=== PATIENT | male | born 1955 | race Caucasian/White ===

== ENCOUNTER 2017-01-07 20:15 | Inpatient (IN) | payer SELFPAY ==
[~2017-01-07] VITALS: Ht 185.4 cm; Wt 92.5 kg
[~2017-01-07 20:15] MED LIST: ACET325T11 PO; ASPI325T PO; ENOX40P SQ; LORTA5 PO; METO25 PO; Z.0.COMMODE-3:1; Z.0.WALKERFRONT
[2017-01-07] MEDS ORDERED: SODIUM CHLOR 0.9% 1000 ML INJ 1,000 ML IV SCH (20:59)
[2017-01-07] MEDS ORDERED: ONDANSETRON HCL 4 MG/2 ML VIAL IVP ONE (21:00)
[2017-01-07] MEDS ORDERED: SODIUM CHLORIDE 0.9% FLUSH 10 ML FLUSH IVF PRN (21:00)
[2017-01-07] MEDS ORDERED: PANTOPRAZOLE SODIUM 40 MG VIAL IVP ONE (21:00)
--- NOTE | 2017-01-07 21:04 | PD ---
HPI Chief Complaint: hematemesis, abdominal pain Time Seen by Provider: 20:52 Travel History International Travel<30 days: No Contact w/Intl Traveler<30days: No Traveled to known affect area: No History of Present Illness HPI 61-year-old male with history of alcoholism, quit drinking for 10 years, relapsed 7 days ago drinking about a half a quart of liquor daily, here for evaluation of hematemesis and epigastric abdominal pain. Patient reports history of hematemesis in 1994 and was told that he had esophageal irritation, no varices. Epigastric abdominal pain described as burning and radiates up into his chest. He reports that his emesis show bright red blood as well as dark/[id number] emesis. He also reports seeing tarry/black stools. No aspirin or ibuprofen use. No antiplatelet or anticoagulant use. No history of abdominal surgeries. PFSH Past Medical History Cancer: No Cardiovascular Problems: No Diabetes: No Endocrine: No Genitourinary: No Hepatitis: No Hiatal Hernia: No Immune Disorder: No Musculoskeletal: Yes (INJURY WITH ARTHRITIS, WITH LOWER BACK PAIN,SWOLLEN KNEES ) Neurologic: Yes (NUMBNESS TO L LEG AND FOOT) Psychiatric: Yes (PANIC ATTACKS IN THE PAST) Reproductive: No Respiratory: No Thyroid Disease: No Past Surgical History AICD: No Joint Replacement: No Pacemaker: No Social History Alcohol Use: Yes Tobacco Use: No Substance Use: No Allergies-Medications (Allergen,Severity, Reaction): Coded Allergies: No Known Allergies (Unverified , 01/07/17) Reported Meds & Prescriptions Reported Meds & Active Scripts Active No Active Prescriptions or Reported Medications Review of Systems Except as stated in HPI: all other systems reviewed are Neg Physical Exam Narrative GENERAL: Well-developed, well-nourished, awake, alert, no apparent distress. SKIN: Focused skin assessment warm/dry. HEAD: Atraumatic. Normocephalic. EYES: Pupils equal and round. No scleral icterus. No injection or drainage. ENT: Mucous membranes pink and moist. NECK: Trachea midline. No JVD. CARDIOVASCULAR: Regular rate and rhythm. No murmur appreciated. RESPIRATORY: No accessory muscle use. Clear to auscultation. Breath sounds equal bilaterally. GASTROINTESTINAL: Abdomen soft, nondistended. Mild epigastric tenderness without peritoneal signs. Normal bowel sounds. RECTUM: No masses, no fissures, no hemorrhoids, heme-negative brown stool. MUSCULOSKELETAL: No obvious deformities. No clubbing. No cyanosis. No edema. NEUROLOGICAL: Awake and alert. No obvious cranial nerve deficits. Motor grossly within normal limits. Normal speech. PSYCHIATRIC: Appropriate mood and affect; insight and judgment normal. Data Data Last Documented VS Vital Signs Date Time Temp Pulse Resp B/P (MAP) Pulse Ox O2 Delivery O2 Flow Rate FiO2 01/08/17 00:30 98.2 116 20 102/57 (72) 99 Room Air Orders Orders Complete Blood Count With Diff (01/07/17 20:59) Comprehensive Metabolic Panel (01/07/17 20:59) Lipase (01/07/17 20:59) Prothrombin Time / Inr (Pt) (01/07/17 20:59) Act Partial Throm Time (Ptt) (01/07/17 20:59) Alcohol (Ethanol) (01/07/17 20:59) Type And Screen (01/07/17 20:59) Ecg Monitoring (01/07/17 20:59) Iv Access Insert/Monitor (01/07/17 20:59) Oximetry (01/07/17 20:59) Ondansetron Inj (Zofran Inj) (01/07/17 21:00) Pantoprazole Inj (Protonix Inj) (01/07/17 21:00) Sodium Chlor 0.9% 1000 Ml Inj (Ns 1000 M (01/07/17 20:59) Sodium Chloride 0.9% Flush (Ns Flush) (01/07/17 21:00) Electrocardiogram (01/07/17 20:59) Ckmb (Isoenzyme) Profile (01/07/17 20:59) Troponin I (01/07/17 20:59) Lactic Acid (01/07/17 21:14) Urinalysis - C+S If Indicated (01/07/17 21:38) Sodium Chlor 0.9% 1000 Ml Inj (Ns 1000 M (01/07/17 22:00) Chest, Single Ap (01/07/17 22:01) Ct Abd/Pel W Iv Contrast(Rout) (01/07/17 22:01) CKMB (01/07/17 21:28) CKMB% (01/07/17 21:28) Ct Pulmonary Angiogram (01/07/17 22:53) Iohexol 350 Inj (Omnipaque 350 Inj) (01/07/17 23:14) Sodium Chlor 0.9% 1000 Ml Inj (Ns 1000 M (01/07/17 23:45) Ct Brain W/O Iv Contrast(Rout) (01/07/17 ) Al-Mag Hy-Si 40-40-4 Mg/Ml Liq (Mag-Al P (01/08/17 00:15) Lidocaine 2% Viscous (Xylocaine 2% Visco (01/08/17 00:15) Potassium Chlor 20 Meq Premix (Kcl 20 Me (01/08/17 00:15) Aspirin Chew (Aspirin Chew) (01/08/17 00:15) Heparin-D5w 25,000 U/250 Ml (Heparin-D5w (01/08/17 00:30) Lactic Acid (01/08/17 00:41) Admit Order (Ed Use Only) (01/08/17 00:51) Labs Laboratory Tests Test 01/07/17 21:28 01/07/17 21:40 01/07/17 21:44 01/08/17 00:40 White Blood Count 9.9 TH/MM3 Red Blood Count 5.24 MIL/MM3 Hemoglobin 14.0 GM/DL Hematocrit 42.4 % Mean Corpuscular Volume 80.8 FL Mean Corpuscular Hemoglobin 26.8 PG Mean Corpuscular Hemoglobin Concent 33.1 % Red Cell Distribution Width 17.8 % Platelet Count 153 TH/MM3 Mean Platelet Volume 8.1 FL Neutrophils (%) (Auto) 74.9 % Lymphocytes (%) (Auto) 16.2 % Monocytes (%) (Auto) 7.0 % Eosinophils (%) (Auto) 0.2 % Basophils (%) (Auto) 1.7 % Neutrophils # (Auto) 7.4 TH/MM3 Lymphocytes # (Auto) 1.6 TH/MM3 Monocytes # (Auto) 0.7 TH/MM3 Eosinophils # (Auto) 0.0 TH/MM3 Basophils # (Auto) 0.2 TH/MM3 CBC Comment DIFF FINAL Differential Comment Prothrombin Time 10.9 SEC Prothromb Time International Ratio 1.0 RATIO Activated Partial Thromboplast Time 25.9 SEC Blood Urea Nitrogen 5 MG/DL Creatinine 1.10 MG/DL Random Glucose 156 MG/DL Total Protein 6.5 GM/DL Albumin 3.1 GM/DL Calcium Level 7.8 MG/DL Alkaline Phosphatase 75 U/L Aspartate Amino Transf (AST/SGOT) 79 U/L Alanine Aminotransferase (ALT/SGPT) 35 U/L Total Bilirubin 1.7 MG/DL Sodium Level 126 MEQ/L Potassium Level 2.4 MEQ/L Chloride Level 89 MEQ/L Carbon Dioxide Level 25.3 MEQ/L Anion Gap 12 MEQ/L Estimat Glomerular Filtration Rate 68 ML/MIN Total Creatine Kinase 1129 U/L Creatine Kinase MB 9.6 NG/ML Creatine Kinase MB % 0.9 % Troponin I 0.23 NG/ML Lipase 492 U/L Ethyl Alcohol Level LESS THAN 3 MG/DL Lactic Acid Level 2.5 mmol/L 1.5 mmol/L Urine Color MJ Urine Turbidity SLIGHT Urine pH 6.5 Urine Specific Cable 1.010 Urine Protein 30 mg/dL Urine Glucose (UA) NEG mg/dL Urine Ketones TRACE mg/dL Urine Occult Blood TRACE Urine Nitrite NEG Urine Bilirubin NEG Urine Leukocyte Esterase NEG Urine RBC 0-3 /hpf Urine WBC 0-2 /hpf Urine Squamous Epithelial Cells 0-5 /hpf Urine Hyaline Casts 6-9 /lpf Urine Mucus MOD /lpf Microscopic Urinalysis Comment CULT NOT INDICATED MDM Medical Decision Making Medical Screen Exam Complete: Yes Emergency Medical Condition: Yes Medical Record Reviewed: Yes Differential Diagnosis Gastritis, peptic ulcer disease, pancreatitis, esophageal varices, upper GI bleed, ACS, Boerhaave syndrome unlikely, Ayla-Dobbins tears. Narrative Course Initial vital signs show heart rate 122, blood pressure 93/60, pulse ox 100% on room air, oral temp of 99.1F. CBC shows WBC 9.9, hemoglobin 14, hematocrit 42.4, platelets 153. CMP is remarkable for sodium 126, potassium 2.4, chloride 89, AST 79, ALT 35. Lipase is 492. Lactic acid is 2.5. Total CK is 1129. CK-MB is 9.6. He can be percent is 0.9. Troponin is 0.23. Alcohol level is negative. Chest x-ray: No evidence of acute cardiopulmonary disease. Patient's EKG shows a left bundle branch block pattern, however this is similar to prior EKG. He has Q waves in anterior and inferior leads. When asked about cardiac disease, the patient reports strong family history of cardiac disease, however no known personal cardiac disease. He denies history of DVT or PE. CT abdomen pelvis is still pending. CT pulmonary angiogram also ordered to rule out PE. CT pulmonary angiogram: CONCLUSION: Negative for pulmonary embolus. Moderate to severe coronary calcifications. Minimal dependent atelectasis in the lungs. CT abdomen pelvis: CONCLUSION: 1. No acute findings within the abdomen. Diffuse fatty liver. Moderate degenerative change of the spine. Previous right hip replacement. Case discussed with on-call hide dropper Dr. Delong. At this point the plan is to start the patient on heparin and admit him to the [facility] at the [facility]. Nitroglycerin will be held at this time given hypotension. Patient made aware of all findings. He tells me that a few days ago he fell and hit the left side of his head. CT head will be ordered to rule out intracranial trauma prior to starting heparin. Patient also is still complaining of epigastric burning sensation that radiates up into his chest. He denies chest pressure. I will try a GI cocktail for these symptoms. CT head: Normal exam for patient of this age. Patient was given a liter of normal saline IV and remains tachycardic. He will be given another liter of normal saline. He will be started on heparin for his NSTEMI. Although the patient reports emesis with blood and coffee-ground emesis, his hemoglobin is 14 and his stool is heme negative and brown. I believe it is safe for him to be started on heparin at this time with serial CBCs. Potassium will be replaced parenterally. 12:45 AM: Case discussed with on-call cone runner Dr. Doan. The patient will be admitted to her service. At this time we will hold on any anticoagulation as there is a possibility that the patient may have esophageal varices and this is an early GI bleed. He is also hyponatremic and appears to be dehydrated which could cause his CBC to be hemoconcentrated. Plan at this time is to try and his CBC as well as his troponins and to make a decision as far as anticoagulation depending on what repeat labs reveal. Critical Care Narrative Aggregate critical care time was 60 minutes. Time to perform other separately billable procedures was not included in the critical care time. My time did not include minutes spent treating any other patients simultaneously or on activities that did not directly contribute to the patient's treatment. The services I provided to this patient were to treat and/or prevent clinically significant deterioration that could result in: , permanent disability, worsening clinical condition, hemorrhagic shock , cardiogenic shock I provided critical care services requiring my management, as noted below: Chart data review, documentation time, medication orders and management, vital sign assessments/reviewing monitor data, ordering and reviewing lab tests, ordering and interpreting/reviewing x-rays and diagnostic studies, care of the patient and discussion of the patient with the admitting physicians. Diagnosis Primary Impression: Non-STEMI (non-ST elevated myocardial infarction) Additional Impressions: Hyponatremia Hypokalemia Hypotension Qualified Codes: I95.9 - Hypotension, unspecified Admitting Information Admitting Physician Requests: Admit Scripts No Active Prescriptions or Reported Meds Jonathan Bahena MD Jan 07, 2017 21:04
[2017-01-07 21:38] VITALS: BP 93/60; PULSE 122; RESP 12; TEMP 99.1; O2SAT 100
[2017-01-07 21:54] LABS: AUTOMATED NEUTROPHIL # 7.4 TH/MM3 (1.8-7.7); BASOPHIL # 0.2 TH/MM3 (0-0.2); BASOPHIL % 1.7 % (0.0-2.0); EOSINOPHIL % 0.2 % (0.0-4.0); HEMATOCRIT 42.4 % (39.0-51.0); HEMO FLAGS DIFF FINAL; LYMPH % 16.2 % (9.0-44.0); LYMPHOCYTE # 1.6 TH/MM3 (1.0-4.8); MEAN CELL VOLUME 80.8 FL (80.0-100.0); MEAN CORPUSCULAR HEMOGLOBIN 26.8 PG (27.0-34.0); MEAN CORPUSCULAR HGB CONC 33.1 % (32.0-36.0); NEUT % 74.9 % (16.0-70.0); PLATELET COUNT 153 TH/MM3 (150-450); RED BLOOD COUNT 5.24 MIL/MM3 (4.50-5.90); RED CELL DISTRIBUTION WIDTH 17.8 % (11.6-17.2); WHITE BLOOD COUNT 9.9 TH/MM3 (4.0-11.0)
[2017-01-07 21:54] LABS: BLOOD, URINE TRACE (NEG); GLUCOSE,URINE NEG (NEG); KETONE, URINE TRACE mg/dL (NEG); NITRITE,URINE NEG (NEG); PH, URINE 6.5 (5.0-8.5)
[2017-01-07 21:55] VITALS: RESP 18; RESP 8; O2SAT 96
[2017-01-07] MEDS ORDERED: SODIUM CHLOR 0.9% 1000 ML INJ 1,000 ML IV ONE ×2 (22:00→23:45)
[2017-01-07 22:23] LABS: APTT (PATIENT) 25.9 SEC (24.3-30.1); PROTHROMBIN TIME - PATIENT 10.9 SEC (9.8-11.6)
[2017-01-07 22:40] LABS: ALCOHOL LESS THAN 3 MG/DL (0-5); ALKALINE PHOSPHATASE 75 U/L (45-117); ALT (GPT) 35 U/L (12-78); ANION GAP 12 MEQ/L (5-15); AST (GOT) 79 U/L (15-37); BICARBONATE 25.3 MEQ/L (21.0-32.0); BLOOD UREA NITROGEN 5 MG/DL (7-18); CHLORIDE 89 MEQ/L (98-107); CREATINE KINASE 1129 U/L (39-308); GLOMERULAR FILTRATION RATE 68 ML/MIN (>89); SODIUM (NA) 126 MEQ/L (136-145); TOTAL BILIRUBIN ADULT 1.7 MG/DL (0.2-1.0)
[2017-01-07 22:41] LABS: POTASSIUM 2.4 MEQ/L (3.5-5.1)
--- NOTE | 2017-01-07 22:43 | RADRPT ---
EXAM DATE/TIME: 01/07/2017 22:20 [facility] COMPARISON: No previous studies available for comparison. INDICATIONS : Chest pain. MEDICAL HISTORY : None. SURGICAL HISTORY : None. ENCOUNTER: Initial ACUITY: 1 day PAIN SCORE: 5/10 LOCATION: Bilateral chest FINDINGS: A single view of the chest demonstrates the lungs to be symmetrically aerated without evidence of mas s, infiltrate or effusion. The cardiomediastinal contours are unremarkable. Osseous structures are intact. CONCLUSION: No evidence of acute cardiopulmonary disease. Rajeev Loera MD on January 07, 2017 at 22:41 Board Certified Radiologist. This report was verified electronically.
[2017-01-07 22:45] LABS: URINE COLOR AMBER (YELLW/STRAW)
[2017-01-07 22:47] LABS: MUCUS URINE MOD /lpf (OCC)
[2017-01-07 22:48] LABS: WBC, URINE 0-2 /hpf (0-5)
[2017-01-07 22:49] LABS: COMMENT (UR) CULT NOT INDICATED; CULTURE IF INDICATED CULT NOT INDICATED; RBC, URINE 0-3 /hpf (0-3); SQUAMOUS EPITHELIAL CELL URINE 0-5 /hpf (0-5)
[2017-01-07 22:55] LABS: CKMB 9.6 NG/ML (0.5-3.6)
[2017-01-07] MEDS ORDERED: IOHEXOL 350 MG/ML 10 ML VIAL (for RAD DIAG) IVCONTRAST ONE (23:14)
--- NOTE | 2017-01-07 23:25 | RADRPT ---
EXAM DATE/TIME: 01/07/2017 23:00 [facility] COMPARISON: No previous studies available for comparison. INDICATIONS : Tachycardia; rule out pulmonary embolus. IV CONTRAST: 94 cc Omnipaque 350 (iohexol) IV ; Cumulative dose for multiple exams. RADIATION DOSE: 22.71 CTDIvol (mGy) MEDICAL HISTORY : None SURGICAL HISTORY : None. ENCOUNTER: Initial ACUITY: 1 day PAIN SCALE: 7/10 LOCATION: chest TECHNIQUE: Volumetric scanning of the chest was performed using a pulmonary embolism protocol MIP images were re constructed. Using automated exposure control and adjustment of the mA and/or kV according to patien t size, radiation dose was kept as low as reasonably achievable to obtain optimal diagnostic quality images. DICOM format image data is available electronically for review and comparison. Follow-up recommendations for detected pulmonary nodules are based at a minimum on nodule size and pa tient risk factors according to Fleischner Society Guidelines. FINDINGS: PULMONARY ARTERIES: No filling defects are seen in the pulmonary arteries through the segmental level. LUNGS: There is no consolidation or pneumothorax . No concerning pulmonary nodule is visualized. PLEURAE: There is no pleural thickening or pleural effusion. MEDIASTINUM: There is good visualization of the great vessels of the middle mediastinum. No evidence of mediastin al or hilar adenopathy/mass. MUSCULOSKELETAL: Within normal limits for patient age. MISCELLANEOUS: The visualized upper abdominal organs demonstrate no acute abnormality. CONCLUSION: Negative for pulmonary embolus. Moderate to severe coronary calcifications. Minimal dependent atelect asis in the lungs. Les Buckley MD on January 07, 2017 at 23:18 Board Certified Radiologist. This report was verified electronically.
--- NOTE | 2017-01-07 23:42 | RADRPT ---
EXAM DATE/TIME: 01/07/2017 23:00 [facility] COMPARISON: No previous studies available for comparison. INDICATIONS : Upper abdominal pain and vomiting blood. IV CONTRAST: 94 cc Omnipaque 350 (iohexol) IV ; Cumulative dose for multiple exams. ORAL CONTRAST: No oral contrast ingested. RADIATION DOSE: 21.32 CTDIvol (mGy) MEDICAL HISTORY : None SURGICAL HISTORY : Right hip replacement ENCOUNTER: Initial ACUITY: 1 day PAIN SCALE: 7/10 LOCATION: abdomen TECHNIQUE: Volumetric scanning of the abdomen and pelvis was performed. Using automated exposure control and ad justment of the mA and/or kV according to patient size, radiation dose was kept as low as reasonably achievable to obtain optimal diagnostic quality images. DICOM format image data is available electro nically for review and comparison. FINDINGS: Minimal dependent atelectasis in the lungs. Moderate coronary calcifications. No significant pleural or pericardial effusion. Diffuse fatty liver. Spleen, adrenals, kidneys and pancreas unremarkable. No free air or free fluid. No bowel obstruction. No acute bony abnormalities. Previous right hip repl acement. CONCLUSION: 1. No acute findings within the abdomen. Diffuse fatty liver. Moderate degenerative change of the spi ne. Previous right hip replacement. Les Buckley MD on January 07, 2017 at 23:36 Board Certified Radiologist. This report was verified electronically.
[2017-01-08] VITALS (14 sets, daily range): BP systolic 92–135; BP diastolic 57–96; PULSE 74–116; RESP 18–24; TEMP 97.2–99.2; O2SAT 96–100
--- NOTE | 2017-01-08 00:09 | RADRPT ---
EXAM DATE/TIME: 01/07/2017 23:54 [facility] COMPARISON: No previous studies available for comparison. INDICATIONS : Patient states he fell 3 days ago. RADIATION DOSE: 63.77 CTDIvol (mGy) MEDICAL HISTORY : Cardiovascular disease. SURGICAL HISTORY : Right hip replacement ENCOUNTER: Initial ACUITY: 3 days PAIN SCALE: 0/10 LOCATION: cranial TECHNIQUE: Multiple contiguous axial images were obtained of the head. Using automated exposure control and adj ustment of the mA and/or kV according to patient size, radiation dose was kept as low as reasonably a chievable to obtain optimal diagnostic quality images. DICOM format image data is available electro nically for review and comparison. FINDINGS: CEREBRUM: The ventricles are normal for age. No evidence of midline shift, mass lesion, hemorrhage or acute in farction. No extra-axial fluid collections are seen. POSTERIOR FOSSA: The cerebellum and brainstem are intact. The 4th ventricle is midline. The cerebellopontine angle i s unremarkable. EXTRACRANIAL: The visualized portion of the orbits is intact. SKULL: The calvaria is intact. No evidence of skull fracture. CONCLUSION: Normal examination for a patient of this age. Les Buckley MD on January 08, 2017 at 0:06 Board Certified Radiologist. This report was verified electronically.
[2017-01-08] MEDS ORDERED: ASPIRIN 81 MG CHEW TAB PO ONE (00:15)
[2017-01-08] MEDS ORDERED: LIDOCAINE VISCOUS 2% SOLN 15 ML UDC PO ONE (00:15)
[2017-01-08] MEDS ORDERED: ALUMINUM/MAGNESIUM/SIMETH 30 ML CUP PO ONE ×2 (00:15→06:00)
[2017-01-08] MEDS ORDERED: HEPARIN-D5W 25,000 U/250 ML 250 ML IV PRN (00:30)
[2017-01-08] MEDS: POTASSIUM CHLOR 20 MEQ PREMIX 100 ML IV SCH ×4 (00:50→05:54)
[2017-01-08] MEDS ORDERED: SODIUM CHLOR 0.9% 1000 ML INJ 1,000 ML IV ONE (01:00)
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
[2017-01-08] MEDS: SODIUM CHLOR 0.9% 1000 ML INJ 1,000 ML IV SCH ×5 (05:40→21:33)
[2017-01-08] MEDS ORDERED: CHLORHEXIDINE GLUCONATE 2 % 1 PACK (2 CLOTHS) TOP PRN (05:45)
[2017-01-08] MEDS ORDERED: POTASSIUM PHOSPHATE INJ 30 MMOL in SODIUM CHLOR 0.9% 250 ML INJ 250 ML IV PRN ×2 (05:45→06:00)
[2017-01-08] MEDS ORDERED: POTASSIUM CHLOR 20 MEQ PREMIX 100 ML IV PRN ×4 (05:45→06:00)
[2017-01-08] MEDS ORDERED: MISCELLANEOUS NURSING INFORMATION XX SCH (05:45)
[2017-01-08] MEDS ORDERED: MAGNESIUM SULFATE INJ 2 GM in SODIUM CHLORIDE 0.9% INJ 96 ML IV PRN ×2 (05:45→06:00)
[2017-01-08] MEDS ORDERED: MAGNESIUM SULFATE INJ 4 GM in SODIUM CHLORIDE 0.9% INJ 92 ML IV PRN ×2 (05:45→06:00)
[2017-01-08] MEDS ORDERED: BISACODYL 10 MG SUPP RECTAL PRN (05:45)
[2017-01-08] MEDS ORDERED: SENNOSIDES 8.6 MG TAB PO PRN (05:45)
[2017-01-08] MEDS ORDERED: LACTULOSE SYRUP 20 GM/30 ML CUP PO PRN (05:45)
[2017-01-08] MEDS ORDERED: ONDANSETRON HCL 4 MG/2 ML VIAL IV PUSH PRN (05:45)
[2017-01-08] MEDS ORDERED: SODIUM CHLORIDE 0.9% FLUSH 10 ML FLUSH IV FLUSH PRN ×2 (05:45→06:00)
[2017-01-08] MEDS ORDERED: POTASSIUM CHLORIDE 25 MEQ EFFERVESCENT TAB PO PRN ×2 (05:45→06:00)
[2017-01-08] MEDS ORDERED: SODIUM PHOSPHATE INJ 30 MMOL in SODIUM CHLOR 0.9% 250 ML INJ 240 ML IV PRN ×2 (05:45→06:00)
[2017-01-08] MEDS ORDERED: MAGNESIUM HYDROXIDE SUSP 30 ML CUP PO PRN (05:45)
[2017-01-08] MEDS ORDERED: POTASSIUM CHLOR 40 MEQ PREMIX 100 ML IV PRN ×4 (05:45→06:00)
[2017-01-08] MEDS ORDERED: POTASSIUM PHOSPHATE MONOBASIC 500 MG TAB PO/TUBE PRN ×2 (05:45→06:00)
[2017-01-08] MEDS ORDERED: POTASSIUM PHOSPHATE MONOBASIC 500 MG TAB PO PRN ×2 (05:45→06:00)
[2017-01-08] MEDS ORDERED: MAGNESIUM OXIDE 400 MG TAB PO PRN ×2 (05:45→06:00)
[2017-01-08] MEDS ORDERED: MORPHINE SULFATE 4 MG/ML INJ IV PUSH PRN (05:45)
[2017-01-08] MEDS: PANTOPRAZOLE SODIUM 40 MG VIAL IV PUSH SCH ×2 (05:56→17:17)
[2017-01-08] MEDS ORDERED: FLUMAZENIL 0.5 MG/5 ML VIAL IV PUSH PRN (06:00)
[2017-01-08] MEDS ORDERED: LORazepam 2 MG TAB PO PRN (06:00)
[2017-01-08] MEDS ORDERED: LORazepam 2 MG/ML VIAL IV PUSH PRN ×4 (06:00)
[2017-01-08 06:23] LABS: HEMATOCRIT 37.7 % (39.0-51.0); REVIEW FLAG FINAL
[2017-01-08] MEDS: OCTREOTIDE INJ 500 MCG in SODIUM CHLORID 0.9% 500 ML INJ 499.5 ML IV SCH ×2 (06:27→15:25)
[2017-01-08 06:31] LABS: MAGNESIUM 1.5 MG/DL (1.5-2.5)
[2017-01-08] MEDS: MULTIVITAMIN INJ 10 ML, FOLIC ACID INJ 1 MG in SODIUM CHLORID 0.9% 500 ML INJ 500 ML IV SCH (06:58)
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
[2017-01-08] MEDS: DOCUSATE SODIUM 50 MG/SENNA 8.6 MG TAB PO SCH ×2 (08:47→21:00)
[2017-01-08] MEDS: SODIUM CHLORIDE 0.9% FLUSH 10 ML FLUSH IV FLUSH SCH ×2 (08:47→21:33)
[2017-01-08] MEDS ORDERED: SODIUM CHLORIDE 0.9% FLUSH 10 ML FLUSH IV FLUSH SCH (09:00)
[2017-01-08] MEDS ORDERED: MIDAZOLAM HCL 2 MG/2 ML VIAL ONE (10:48)
[2017-01-08] MEDS ORDERED: PROPOFOL 200 MG/20 ML AMP IV PUSH ONE (11:04)
[2017-01-08] MEDS ORDERED: DO NOT ADM ANY ANTICOAGULANT DRUGS PRN (11:18)
--- NOTE | 2017-01-08 11:35 | GIPROC ---
[facility] [address] [facility]. [facility], [id number] EGD PROCEDURE REPORT EXAM DATE: 01/08/2017 PATIENT NAME: Sanya Cantu MR #: [id number] BIRTHDATE: 1955 ATTENDING: Inna Monsivais MD ORDER #: [id number] EXCHANGE CONSULTANT: Latia Martins and Basilio Kelley STATUS: inpatient INDICATIONS: The patient is a 61 yr old male here for an EGD due to reflux , anemia , melena PROCEDURE PERFORMED: EGD w/ biopsy MEDICATIONS: None and Per Anesthesia. TOPICAL ANESTHETIC: none CONSENT: The patient understands the risks and benefits of the procedure and understands that these risks include, but are not limited to: sedation, allergic reaction, infection, perforation and/or bleeding. Alternative means of evaluation and treatment include, among others: physical exam, x-rays, and/or surgical intervention. The patient elects to proceed with this endoscopic procedure. medical equipment was checked for proper function. Hand hygiene and appropriate measures for infection prevention was taken. After the risks, benefits and alternatives of the procedure were thoroughly explained, Informed consent was verified, confirmed and timeout was successfully executed by the treatment team. The patient was anesthetized with topical anesthesia and the Pentax [id number] endoscope was introduced through the mouth and advanced to the second portion of the duodenum. Retroflexed views revealed a hiatal hernia The gastroscope was then slowly withdrawn and removed. Gastritis antrum-biopsy duodenitis second potion-biopsy esophagitis distal esophagus -biopsy. ADVERSE EVENTS: There were no complications. IMPRESSIONS: 1. Gastritis antrum-biopsy duodenitis second potion-biopsy esophagitis distal esophagus -biopsy 2. Retroflexed views revealed a hiatal hernia RECOMMENDATIONS: 1. Await biopsy results. Biopsy results will not be ready for 7-10 days. If you don't hear from us in two weeks, call our office for biopsy results. 2. Anti-reflux regimen PATIENT CONDITION: stable DISPOSITION: Inpatient REPEAT EXAM: EGD pending biopsy results Inna Monsivais MD eSigned: Inna Monsivais MD 01/08/2017 11:35 AM cc:
[2017-01-08] MEDS ORDERED: POTASSIUM PHOSPHATE INJ 30 MMOL in SODIUM CHLOR 0.9% 250 ML INJ 250 ML IV ONE (13:00)
--- NOTE | 2017-01-08 13:38 | PD.CONS ---
HPI Service Cardiology physicians Consult Requested By Dr britton Reason for Consult elevated troponin Primary Care Physician No Primary Care Physician History of Present Illness The patient is a 61 year old male with a cardiac history of non sustained supraventricular tachycardia who presented to the hospital for sudden onset of vomiting dried blood and dark-tarry stool. He had recently relapsed and started drinking large amount of alcohol. Work up from a cardiac standpoint revealed elevated troponin and moderate to severe coronary calcification on CT pulmonary angiogram. EGD completed this morning negative for esophageal varices. Today, he denies chest pain or SOB. EKG reveals IVCD which is stable compared to 2015 admission. (Wendy Arreola) Review of Systems Consitutional: DENIES: Fatigue, Fever, Chills, Weight gain, Weight loss Eyes: DENIES: Amaurosis Fugax, Change in vision HEENT: DENIES: Lightheadedness, Change in hearing Respiratory: DENIES: See HPI, Cough, Snoring, Shortness of breath, Wheezing, Sputum production Cardiovascular: DENIES: See HPI, Chest pain, Palpitations, Syncope, Tachycardia Gastrointestinal: COMPLAINS OF: Vomiting, Bloody stools, DENIES: Nausea, Change in bowel habits, Reflux, Melena Genitourinary: DENIES: Urinary incontinence, Difficulty voiding Integumentary: DENIES: Rash Neurologic: DENIES: Tingling or numbness, Memory problems, Poor Balance, Stroke symptoms Musculoskeletal: DENIES: Joint pain, Muscle pain, Limited range of motion, Back pain Psychiatric: DENIES: Anxiety, Depression, Sleep disturbances Hematologic: DENIES: Bruising tendencies, Bleeding tendencies Endocrine: DENIES: Weight gain, Weight loss, Thyroid disease (Wendy Arreola ) Past Family Social History Allergies: Coded Allergies: No Known Allergies (Unverified , 01/07/17) Past Medical History ETOH dependence non sustained supraventricular tachycardia. Esophagitis and GI bleed Past Surgical History hip surgery 09/2015 Reported Medications Reported Meds & Active Scripts Active No Active Prescriptions or Reported Medications Active Ordered Medications Current Medications Medications (Trade) Dose Ordered Sig/Eduardo Route Start Time Stop Time Status Last Admin (Protonix Inj) 40 mg Q12H IV PUSH 01/08/17 06:00 01/08/17 05:56 Octreotide Acetate 500 mcg/ Sodium Chloride 500 ml @ 50 mls/hr Q10H IV 01/08/17 05:39 01/08/17 06:27 Sodium Chloride 1,000 ml @ 110 mls/hr Q9H6M IV 01/08/17 05:40 01/08/17 05:40 (Morphine Inj) 2 mg Q2H PRN IV PUSH 01/08/17 05:45 01/08/17 12:00 (Zofran Inj) 4 mg Q6H PRN IV PUSH 01/08/17 05:45 01/08/17 12:00 Miscellaneous Information 1 Q361D XX 01/08/17 05:45 01/08/17 05:45 (Chlorhexidine 2% Cloth) 3 pack Taper DAILY@04 TOP 01/09/17 04:00 01/05/18 03:59 (Chlorhexidine 2% Cloth) 3 pack UNSCH PRN TOP 01/08/17 05:45 (Alma-Colace) 1 tab BID PO 01/08/17 09:00 (Milk Of Magnesia Liq) 30 ml Q12H PRN PO 01/08/17 05:45 (Senokot) 17.2 mg Q12H PRN PO 01/08/17 05:45 (Dulcolax Supp) 10 mg DAILY PRN RECTAL 01/08/17 05:45 (Lactulose Liq) 30 ml DAILY PRN PO 01/08/17 05:45 Potassium Chloride 100 ml @ 50 mls/hr Q2H PRN IV 01/08/17 06:00 Potassium Chloride 100 ml @ 50 mls/hr Q2H PRN IV 01/08/17 06:00 (K-Lyte Cl Eff) 50 meq UNSCH PRN PO 01/08/17 06:00 Potassium Chloride 100 ml @ 25 mls/hr UNSCH PRN IV 01/08/17 06:00 Potassium Chloride 100 ml @ 50 mls/hr Q2H PRN IV 01/08/17 06:00 Magnesium Sulfate 4 gm/Sodium Chloride 100 ml @ 50 mls/hr UNSCH PRN IV 01/08/17 06:00 (Mag-Ox) 800 mg UNSCH PRN PO 01/08/17 06:00 Magnesium Sulfate 2 gm/Sodium Chloride 100 ml @ 50 mls/hr UNSCH PRN IV 01/08/17 06:00 (K-Phos) 2,000 mg Q4H PRN PO 01/08/17 06:00 Sodium Phosphate 30 mmol/Sodium Chloride 250 ml @ 42 mls/hr UNSCH PRN IV 01/08/17 06:00 (K-Phos) 2,000 mg UNSCH PRN PO/TUBE 01/08/17 06:00 Potassium Phosphate 30 mmol/ Sodium Chloride 260 ml @ 42 mls/hr UNSCH PRN IV 01/08/17 06:00 (NS Flush) 2 ml UNSCH PRN IV FLUSH 01/08/17 06:00 (NS Flush) 2 ml BID IV FLUSH 01/08/17 09:00 Multivitamins 10 ml/Folic Acid 1 mg/Sodium Chloride 510.2 ml @ 125 mls/hr Q24H IV 01/08/17 06:00 01/13/17 05:59 01/08/17 06:58 (Romazicon Inj) 0.2 mg Q1M PRN IV PUSH 01/08/17 06:00 (Ativan) 1 mg Q4H PRN PO 01/08/17 06:00 (Ativan Inj) 1 mg Q4H PRN IV PUSH 01/08/17 06:00 (Ativan) 2 mg Q2H PRN PO 01/08/17 06:00 (Ativan Inj) 2 mg Q2H PRN IV PUSH 01/08/17 06:00 (Ativan Inj) 2 mg Q1H PRN IV PUSH 01/08/17 06:00 (Ativan Inj) 2 mg Q15M PRN IV PUSH 01/08/17 06:00 Potassium Phosphate 30 mmol/ Sodium Chloride 260 ml @ 43.333 mls/ hr ONCE ONCE IV 01/08/17 13:00 01/08/17 18:59 01/08/17 12:01 Sodium Chloride 1,000 ml @ 100 mls/hr Q10H IV 01/08/17 11:15 01/08/17 12:33 Miscellaneous Information ALL NURSING DEPARTME... UNSCH PRN .XX 01/08/17 11:18 01/09/17 11:17 Social History Long standing history of ETOH dependence (Wendy Arreola) Physical Exam Vital Signs Vital Signs Date Time Temp Pulse Resp B/P (MAP) Pulse Ox O2 Delivery O2 Flow Rate FiO2 01/08/17 12:00 98.2 103 22 130/72 (91) 97 01/08/17 12:00 103 01/08/17 11:38 98.4 102 20 123/85 (98) 96 Nasal Cannula 2 01/08/17 11:30 104 20 113/76 (88) 96 Nasal Cannula 2 01/08/17 11:20 100 21 108/73 (85) 96 Nasal Cannula 2 01/08/17 11:17 98.4 107 20 105/72 (83) 96 Nasal Cannula 2 01/08/17 10:00 98 01/08/17 08:00 106 01/08/17 08:00 99.1 106 24 135/89 (104) 96 01/08/17 08:00 106 01/08/17 07:00 98 Room Air 01/08/17 04:00 Room Air 01/08/17 04:00 98.8 113 22 121/78 (92) 97 01/08/17 03:14 01/08/17 03:00 99.2 108 18 119/80 (93) 99 Room Air 01/08/17 02:30 104 18 131/62 (85) 99 Room Air 01/08/17 02:00 106 18 122/79 (93) 99 Room Air 01/08/17 01:30 106 20 106/67 (80) 100 Room Air 01/08/17 01:00 110 20 92/67 (75) 99 Room Air 01/08/17 00:30 98.2 116 20 102/57 (72) 99 Room Air 01/07/17 21:55 18 96 Room Air 01/07/17 21:38 99.1 122 12 93/60 (71) 100 Physical Exam GENERAL: middle aged male SKIN: Warm and dry. tattoos HEAD: Normocephalic. EYES: No scleral icterus. No injection or drainage. NECK: Supple, trachea midline. CARDIOVASCULAR: Regular rate and rhythm without murmurs, gallops, or rubs. RESPIRATORY: Breath sounds equal bilaterally. No accessory muscle use. GASTROINTESTINAL: Abdomen soft, non-tender, nondistended. MUSCULOSKELETAL: No cyanosis, or edema. BACK: Nontender without obvious deformity. Laboratory Laboratory Tests Test 01/07/17 21:28 01/07/17 21:40 01/07/17 21:44 01/08/17 00:40 White Blood Count 9.9 Red Blood Count 5.24 Hemoglobin 14.0 Hematocrit 42.4 Mean Corpuscular Volume 80.8 Mean Corpuscular Hemoglobin 26.8 Mean Corpuscular Hemoglobin Concent 33.1 Red Cell Distribution Width 17.8 Platelet Count 153 Mean Platelet Volume 8.1 Neutrophils (%) (Auto) 74.9 Lymphocytes (%) (Auto) 16.2 Monocytes (%) (Auto) 7.0 Eosinophils (%) (Auto) 0.2 Basophils (%) (Auto) 1.7 Neutrophils # (Auto) 7.4 Lymphocytes # (Auto) 1.6 Monocytes # (Auto) 0.7 Eosinophils # (Auto) 0.0 Basophils # (Auto) 0.2 CBC Comment DIFF FINAL Differential Comment Prothrombin Time 10.9 Prothromb Time International Ratio 1.0 Activated Partial Thromboplast Time 25.9 Blood Urea Nitrogen 5 Creatinine 1.10 Random Glucose 156 Total Protein 6.5 Albumin 3.1 Calcium Level 7.8 Alkaline Phosphatase 75 Aspartate Amino Transf (AST/SGOT) 79 Alanine Aminotransferase (ALT/SGPT) 35 Total Bilirubin 1.7 Sodium Level 126 Potassium Level 2.4 Chloride Level 89 Carbon Dioxide Level 25.3 Anion Gap 12 Estimat Glomerular Filtration Rate 68 Total Creatine Kinase 1129 Creatine Kinase MB 9.6 Creatine Kinase MB % 0.9 Troponin I 0.23 Lipase 492 Ethyl Alcohol Level LESS THAN 3 Lactic Acid Level 2.5 1.5 Urine Color MJ Urine Turbidity SLIGHT Urine pH 6.5 Urine Specific Arnot 1.010 Urine Protein 30 Urine Glucose (UA) NEG Urine Ketones TRACE Urine Occult Blood TRACE Urine Nitrite NEG Urine Bilirubin NEG Urine Leukocyte Esterase NEG Urine RBC 0-3 Urine WBC 0-2 Urine Squamous Epithelial Cells 0-5 Urine Hyaline Casts 6-9 Urine Mucus MOD Microscopic Urinalysis Comment CULT NOT INDICATED Test 01/08/17 04:20 01/08/17 05:40 Nasal Screen MRSA (PCR) MRSA NOT DETECTED Hemoglobin 12.4 Hematocrit 37.7 Phosphorus Level 1.3 Magnesium Level 1.5 Ammonia 28 Troponin I 0.17 (Wendy Arreola) Result Diagram: 01/08/17 0540 01/07/172127 Imaging Last [address] Angiography 01/07/17 8128 Signed Impressions: Service Date/Time: Saturday, January 07, 2017 23:00 - CONCLUSION: Negative for pulmonary embolus. Moderate to severe coronary calcifications. Minimal dependent atelectasis in the lungs. Les Buckley MD Chest X-Ray 01/07/172200 Signed Impressions: Service Date/Time: Saturday, January 07, 2017 22:20 - CONCLUSION: No evidence of acute cardiopulmonary disease. Rajeev Loera MD Abdomen/Pelvis CT 01/07/172200 Signed Impressions: Service Date/Time: Saturday, January 07, 2017 23:00 - CONCLUSION: 1. No acute findings within the abdomen. Diffuse fatty liver. Moderate degenerative change of the spine. Previous right hip replacement. Les Buckley MD Head CT 01/07/17 0000 Signed Impressions: Service Date/Time: Saturday, January 07, 2017 23:54 - CONCLUSION: Normal examination for a patient of this age. Les Buckley MD (Wendy Arreola) Assessment and Plan Assessment and Plan Elevated troponin with evidence of moderate to severe coronary calcification on imaging History of non sustained supraventricular tachycardia. PLAN Resume low dose beta suzanne ASA 81 mg when cleared by GI We will order lexiscan to be completed prior to discharge Patient seen and evaluated by Dr Delong who completed a face to face encounter and physical exam, and participated in evaluation and management. (Wendy Arreola) Assessment and Plan The exam, history, and the medical decision-making described in the above note were completed with the assistance of the mid-level provider. I reviewed and agree with the findings presented. I attest that I had a [id number] encounter with the patient on the same day, and personally performed and documented my assessment and findings in the medical record Has coronary calcification and borderline troponin. (Arnold Delong MD) Wendy Arreola Jan 08, 2017 13:38 Arnold Delong MD Jan 08, 2017 13:50
--- NOTE | 2017-01-08 13:46 | EKG ---
Date Performed: 01/07/2017 Time Performed: 21:10:30 PTAGE: 61 years EKG: SINUS TACHYCARDIA ANTERIOR MYOCARDIAL INFARCTION INFERIOR MYOCARDIAL INFARCTION ABNORMAL EC G PREVIOUS TRACING : 10/05/2015 12.27 Since the prior tracing, there has been development of QT p rolongation. There has been further widening of the QRS complex. The criteria for the anterior wall i nfarct of indeterminate age is new. Serial changes suggest drug effect, electrolyte imbalance, or kamini cardial disease. Clinical correlation will be important. DOCTOR: Mahi Langston Interpretating Date/Time 01/08/2017 13:44:48
[2017-01-08] MEDS: METOPROLOL TARTRATE 25 MG TAB PO SCH ×2 (14:32→21:33)
[2017-01-08 15:39] LABS: HEMATOCRIT 34.5 % (39.0-51.0); REVIEW FLAG FINAL
[2017-01-08 16:26] LABS: POTASSIUM 3.3 MEQ/L (3.5-5.1)
[2017-01-08 16:41] LABS: CKMB 4.4 NG/ML (0.5-3.6)
--- NOTE | 2017-01-08 16:53 | ECHRPT ---
Indication: SHORTNESS OF BREATH CONCLUSIONS Mildly dilated left ventricle. Wall thickness is normal. The left ventricular systolic function is severely reduced with an estimated ejection fraction in th e range of 20-25%. There is diffuse global hypokinesis without distinct regional wall motion abnormalities. Trace mitral valve regurgitation. The aortic valve is not well visualized. There is trace tricuspid valve regurgitation. Normal estimated pulmonary pressures. BP: 121 / 78 HR: 113 Rhythm: Sinus MEASUREMENTS (Male / Female) Normal Values Technical Quality:Very technically difficult study 2D ECHO LV Diastolic Diameter PLAX 5.1 cm 4.2 - 5.9 / 3.9 - 5.3 cm LV Systolic Diameter PLAX 4.6 cm IVS Diastolic Thickness 0.9 cm 0.6 - 1.0 / 0.6 - 0.9 cm LVPW Diastolic Thickness 0.9 cm 0.6 - 1.0 / 0.6 - 0.9 cm LV Relative Wall Thickness 0.3 LVOT Diameter 2.4 cm Aortic Root Diameter 3.3 cm LA Systolic Diameter LX 2.7 cm 3.0 - 4.0 / 2.7 - 3.8 cm M-MODE AV Cusp Separation MM 2.2 cm DOPPLER AV Peak Velocity 108.0 cm/s AV Peak Gradient 4.7 mmHg AV Mean Gradient 3.0 mmHg AV Velocity Time Integral 14.8 cm LVOT Peak Velocity 70.7 cm/s LVOT Peak Gradient 2.0 mmHg LVOT Velocity Time Integral 10.0 cm LVOT Cardiac Index 2250.0 cm/minm AV Area Cont Eq vti 3.1 cm AV Area Cont Eq pk 3.0 cm Mitral E Point Velocity 80.5 cm/s Mitral A Point Velocity 64.7 cm/s Mitral E to A Ratio 1.2 LV E' Lateral Velocity 10.2 cm/s Mitral E to LV E' Lateral Ratio 7.9 LV E' Septal Velocity 4.6 cm/s Mitral E to LV E' Septal Ratio 17.5 TR Peak Velocity 227.0 cm/s TR Peak Gradient 20.6 mmHg PV Peak Velocity 66.2 cm/s PV Peak Gradient 1.8 mmHg FINDINGS LEFT VENTRICLE Mildly dilated left ventricle. Wall thickness is normal. The left ventricular systolic function is severely reduced with an estimated ejection fraction in th e range of 20-25%. There is diffuse global hypokinesis without distinct regional wall motion abnormalities. RIGHT VENTRICLE Normal right ventricular size and systolic function. LEFT ATRIUM The left atrial size is upper normal. RIGHT ATRIUM The right atrial size is normal. ATRIAL SEPTUM The interatrial septum not well visualized. AORTA The aortic root and proximal ascending aorta are not well visualized. MITRAL VALVE Structurally normal mitral valve. Trace mitral valve regurgitation. AORTIC VALVE The aortic valve is not well visualized. No aortic valve stenosis. No aortic valve regurgitation. TRICUSPID VALVE Structurally normal tricuspid valve. There is trace tricuspid valve regurgitation. Normal estimated pulmonary pressures. PULMONARY VALVE No pulmonary valve regurgitation or stenosis. VESSELS The inferior vena cava is dilated. There is less than 50% respiratory change in dimension of the inferior vena cava (abnormal). PERICARDIUM No pericardial effusion. Tr Barbosa MD (Electronically Signed) Final Date:08 January 2017 16:52
[2017-01-08 23:51] LABS: HEMATOCRIT 32.2 % (39.0-51.0); REVIEW FLAG FINAL
[2017-01-09] VITALS (8 sets, daily range): BP systolic 123–149; BP diastolic 77–87; PULSE 95–114; RESP 18–20; TEMP 98–99; O2SAT 96–98
[2017-01-09] MEDS: OCTREOTIDE INJ 500 MCG in SODIUM CHLORID 0.9% 500 ML INJ 499.5 ML IV SCH ×3 (02:49→21:53)
[2017-01-09] MEDS: CHLORHEXIDINE GLUCONATE 2 % 1 PACK (2 CLOTHS) TOP SCH (04:00)
[2017-01-09 04:34] LABS: AUTOMATED NEUTROPHIL # 3.8 TH/MM3 (1.8-7.7); BASOPHIL % 0.4 % (0.0-2.0); EOSINOPHIL # 0.1 TH/MM3 (0-0.4); EOSINOPHIL % 1.2 % (0.0-4.0); HEMATOCRIT 31.3 % (39.0-51.0); LYMPH % 28.4 % (9.0-44.0); LYMPHOCYTE # 1.7 TH/MM3 (1.0-4.8); MEAN CELL VOLUME 83.2 FL (80.0-100.0); MEAN CORPUSCULAR HEMOGLOBIN 27.2 PG (27.0-34.0); MEAN CORPUSCULAR HGB CONC 32.7 % (32.0-36.0); MONO % 8.3 % (0.0-8.0); NEUT % 61.7 % (16.0-70.0); PLATELET COUNT 99 TH/MM3 (150-450); RED BLOOD COUNT 3.76 MIL/MM3 (4.50-5.90); RED CELL DISTRIBUTION WIDTH 17.7 % (11.6-17.2); WHITE BLOOD COUNT 6.2 TH/MM3 (4.0-11.0)
[2017-01-09 04:46] LABS: BICARBONATE 25.5 MEQ/L (21.0-32.0); CALCIUM-PROTEIN CORRECTED 8.1 MG/DL (8.5-10.1); MAGNESIUM 1.4 MG/DL (1.5-2.5); TOTAL BILIRUBIN ADULT 0.7 MG/DL (0.2-1.0)
[2017-01-09 04:50] LABS: HEMO FLAGS AUTO DIFF
[2017-01-09 04:59] LABS: POTASSIUM 2.9 MEQ/L (3.5-5.1)
[2017-01-09] MEDS ORDERED: POTASSIUM CHLORIDE 20 MEQ CONTROLLED RELEASE TAB PO ONE ×2 (05:30→17:00)
[2017-01-09] MEDS: MULTIVITAMIN INJ 10 ML, FOLIC ACID INJ 1 MG in SODIUM CHLORID 0.9% 500 ML INJ 500 ML IV SCH (05:36)
[2017-01-09] MEDS: PANTOPRAZOLE SODIUM 40 MG VIAL IV PUSH SCH ×2 (05:36→17:23)
[2017-01-09] MEDS: POTASSIUM CHLOR 20 MEQ PREMIX 100 ML IV SCH ×2 (05:44→09:25)
[2017-01-09 06:53] LABS: PLATELET ESTIMATE SMEAR LOW (NORMAL); PLATELET MORPHOLOGY NORMAL (NORMAL); SCAN/DIFF AUTO DIFF CONFIRMED
[2017-01-09] MEDS ORDERED: REGADENOSON INJ 0.4 MG/5 ML SYR ONE (10:33)
[2017-01-09] MEDS: DOCUSATE SODIUM 50 MG/SENNA 8.6 MG TAB PO SCH ×2 (12:04→21:00)
[2017-01-09] MEDS: ASPIRIN 325 MG TAB PO SCH (12:04)
[2017-01-09] MEDS: SODIUM CHLORIDE 0.9% FLUSH 10 ML FLUSH IV FLUSH SCH ×2 (12:04→21:53)
[2017-01-09] MEDS: METOPROLOL TARTRATE 25 MG TAB PO SCH (12:04)
--- NOTE | 2017-01-09 13:38 | RADRPT ---
EXAM DATE/TIME: 01/09/2017 09:49 [facility] COMPARISON: No previous studies available for comparison. INDICATIONS : Coronary artery disease. Abnormal EKG. DOSE: 27.3 mCi Tc99m Myoview at stress. 8.3 mCi Tc99m Myoview at rest. 0.4 mg Lexiscan STRESS SYMPTOMS: Dizziness and nausea. EJECTION FRACTION: 29% MEDICAL HISTORY : GI bleed and SVT. SURGICAL HISTORY : Hip surgery. ENCOUNTER: Initial ACUITY: 1 day PAIN SCALE: 0/10 LOCATION: Left chest TECHNIQUE: The patient underwent pharmacologic stress with infusion of prescribed dose. Continuous ECG tracing was monitored during stress. Gated SPECT imaging was performed after stress and conventional SPECT i maging was performed at rest. The examination was performed on a SPECT/CT scanner, both attenuation and non-corrected datasets were reviewed. FINDINGS: There is dilatation of the ventricular cavity. There are fixed defects in the anterior wall. There is minimal redistribution the anteroseptal region region beginning mid ventricle extending to t he apex. Moderate gut activity does obscure the inferior wall. There is global hypokinesis CONCLUSION: Minimal redistribution anteroseptal region. RISK CATEGORY: High (>3% Annual Mortality Rate) Ronnell Quiles MD FACR on January 09, 2017 at 13:33 Board Certified Radiologist. This report was verified electronically.
[2017-01-09 16:13] LABS: C. DIFF EPI 027 PRESUMPTIVE NEGATIVE (NEGATIVE)
--- NOTE | 2017-01-09 16:20 | PD.CARD.PN ---
Subjective Subjective Remarks The patient denies CP or SOB this morning. HR continues to be slightly elevated (Wendy Arreola) Objective Medications Current Medications Medications (Trade) Dose Ordered Sig/Eduardo Route Start Time Stop Time Status Last Admin (Protonix Inj) 40 mg Q12H IV PUSH 01/08/17 06:00 01/09/17 05:36 Octreotide Acetate 500 mcg/ Sodium Chloride 500 ml @ 50 mls/hr Q10H IV 01/08/17 05:39 01/09/17 15:11 Sodium Chloride 1,000 ml @ 110 mls/hr Q9H6M IV 01/08/17 05:40 01/08/17 05:40 (Morphine Inj) 2 mg Q2H PRN IV PUSH 01/08/17 05:45 01/08/17 12:00 (Zofran Inj) 4 mg Q6H PRN IV PUSH 01/08/17 05:45 01/08/17 12:00 Miscellaneous Information 1 Q361D XX 01/08/17 05:45 01/08/17 05:45 (Chlorhexidine 2% Cloth) 3 pack Taper DAILY@04 TOP 01/09/17 04:00 01/05/18 03:59 01/09/17 04:00 (Chlorhexidine 2% Cloth) 3 pack UNSCH PRN TOP 01/08/17 05:45 (Alma-Colace) 1 tab BID PO 01/08/17 09:00 (Milk Of Magnesia Liq) 30 ml Q12H PRN PO 01/08/17 05:45 (Senokot) 17.2 mg Q12H PRN PO 01/08/17 05:45 (Dulcolax Supp) 10 mg DAILY PRN RECTAL 01/08/17 05:45 (Lactulose Liq) 30 ml DAILY PRN PO 01/08/17 05:45 (NS Flush) 2 ml UNSCH PRN IV FLUSH 01/08/17 06:00 (NS Flush) 2 ml BID IV FLUSH 01/08/17 09:00 01/09/17 12:04 Multivitamins 10 ml/Folic Acid 1 mg/Sodium Chloride 510.2 ml @ 125 mls/hr Q24H IV 01/08/17 06:00 01/13/17 05:59 01/09/17 05:36 (Romazicon Inj) 0.2 mg Q1M PRN IV PUSH 01/08/17 06:00 (Ativan) 1 mg Q4H PRN PO 01/08/17 06:00 (Ativan Inj) 1 mg Q4H PRN IV PUSH 01/08/17 06:00 (Ativan) 2 mg Q2H PRN PO 01/08/17 06:00 (Ativan Inj) 2 mg Q2H PRN IV PUSH 01/08/17 06:00 (Ativan Inj) 2 mg Q1H PRN IV PUSH 01/08/17 06:00 (Ativan Inj) 2 mg Q15M PRN IV PUSH 01/08/17 06:00 Sodium Chloride 1,000 ml @ 100 mls/hr Q10H IV 01/08/17 11:15 01/08/17 21:15 (Lopressor) 25 mg Q12HR PO 01/08/17 13:45 01/09/17 12:04 (Aspirin) 81 mg DAILY PO 01/09/17 09:00 01/09/17 12:04 Vital Signs / I&O Vital Signs Date Time Temp Pulse Resp B/P (MAP) Pulse Ox O2 Delivery O2 Flow Rate FiO2 01/09/17 13:22 98.0 106 18 130/87 (101) 97 01/09/17 09:22 107 01/09/17 09:22 Room Air 01/09/17 08:55 98.4 113 20 123/79 (94) 97 01/09/17 04:00 98.6 100 18 149/80 (103) 97 01/09/17 00:00 99.0 95 18 128/85 (99) 96 01/08/17 20:15 Room Air 01/08/17 20:00 97.2 74 18 129/72 (91) 96 01/08/17 18:20 98.5 99 18 125/78 (94) 97 I/O 01/08/17 01/08/17 01/08/17 01/09/17 01/09/17 01/09/17 07:00 15:00 23:00 07:00 15:00 23:00 Intake Total 3217 ml 320 ml 1574 ml 1499 ml 480 ml Output Total 200 ml 1200 ml 550 ml Balance 3017 ml 320 ml 1574 ml 299 ml -70 ml Intake Oral 240 ml 480 ml IV Total 3217 ml 70 ml 1574 ml 1259 ml Other 250 ml Output Urine Total 200 ml 1200 ml 550 ml # Bowel Movements 0 1 Physical Exam GENERAL: Middle age male, NAD SKIN: Warm and dry. HEAD: Normocephalic. EYES: No scleral icterus. No injection or drainage. NECK: Supple, trachea midline. No JVD or lymphadenopathy. CARDIOVASCULAR: Regular rate and rhythm without murmurs, gallops, or rubs. RESPIRATORY: Breath sounds equal bilaterally. No accessory muscle use. GASTROINTESTINAL: Abdomen soft, non-tender, nondistended. MUSCULOSKELETAL: No cyanosis, or edema. BACK: Nontender without obvious deformity. No CVA tenderness. Laboratory Laboratory Tests Test 01/08/17 23:08 01/09/17 03:26 01/09/17 14:30 Hemoglobin 10.5 GM/DL 10.2 GM/DL Hematocrit 32.2 % 31.3 % White Blood Count 6.2 TH/MM3 Red Blood Count 3.76 MIL/MM3 Mean Corpuscular Volume 83.2 FL Mean Corpuscular Hemoglobin 27.2 PG Mean Corpuscular Hemoglobin Concent 32.7 % Red Cell Distribution Width 17.7 % Platelet Count 99 TH/MM3 Mean Platelet Volume 8.2 FL Neutrophils (%) (Auto) 61.7 % Lymphocytes (%) (Auto) 28.4 % Monocytes (%) (Auto) 8.3 % Eosinophils (%) (Auto) 1.2 % Basophils (%) (Auto) 0.4 % Neutrophils # (Auto) 3.8 TH/MM3 Lymphocytes # (Auto) 1.7 TH/MM3 Monocytes # (Auto) 0.5 TH/MM3 Eosinophils # (Auto) 0.1 TH/MM3 Basophils # (Auto) 0.0 TH/MM3 CBC Comment AUTO DIFF Differential Comment AUTO DIFF CONFIRMED Platelet Estimate LOW Platelet Morphology Comment NORMAL Blood Urea Nitrogen 3 MG/DL Creatinine 0.79 MG/DL Random Glucose 111 MG/DL Total Protein 4.9 GM/DL Albumin 2.4 GM/DL Calcium Level 6.9 MG/DL Magnesium Level 1.4 MG/DL Alkaline Phosphatase 53 U/L Aspartate Amino Transf (AST/SGOT) 55 U/L Alanine Aminotransferase (ALT/SGPT) 29 U/L Total Bilirubin 0.7 MG/DL Sodium Level 136 MEQ/L Potassium Level 2.9 MEQ/L Chloride Level 102 MEQ/L Carbon Dioxide Level 25.5 MEQ/L Anion Gap 9 MEQ/L Estimat Glomerular Filtration Rate 99 ML/MIN Protein Corrected Calcium 8.1 MG/DL Imaging Last 72 hours Impressions Myocardial Perfusion Scan Nuc Med 01/09/17 0000 Signed Impressions: Service Date/Time: Monday, January 09, 2017 09:49 - CONCLUSION: Minimal redistribution anteroseptal region. RISK CATEGORY: High (>3%% Annual Mortality Rate) Ronnell Quiles MD FACR CT Angiography 01/07/173 Signed Impressions: Service Date/Time: Saturday, January 07, 2017 23:00 - CONCLUSION: Negative for pulmonary embolus. Moderate to severe coronary calcifications. Minimal dependent atelectasis in the lungs. Les Buckley MD Chest X-Ray 01/07/172200 Signed Impressions: Service Date/Time: Saturday, January 07, 2017 22:20 - CONCLUSION: No evidence of acute cardiopulmonary disease. Rajeev Loera MD Abdomen/Pelvis CT 01/07/172200 Signed Impressions: Service Date/Time: Saturday, January 07, 2017 23:00 - CONCLUSION: 1. No acute findings within the abdomen. Diffuse fatty liver. Moderate degenerative change of the spine. Previous right hip replacement. Les Buckley MD Head CT 01/07/17 0000 Signed Impressions: Service Date/Time: Saturday, January 07, 2017 23:54 - CONCLUSION: Normal examination for a patient of this age. Les Buckley MD (Wendy Arreola) Assessment and Plan Assessment and Plan Elevated troponin with evidence of moderate to severe coronary calcification on imaging. Lexiscan is rated high risk due to low EF, however no reversible ischemia. Actual risk is low to moderate. Cardiomyopathy EF 20-25% echo, lexiscan 29%. Likely alcoholic cardiomyopathy. History of non sustained supraventricular tachycardia. Hypokalemia PLAN Change metoprolol to Coreg. Add low dose MELVIN and spironolactone. Follow up BMP. Hold off on statin due to elevated AST likely due to alcohol. ASA 81 mg We will plan to manage medically at this time. The patient denies symptoms of chest pain or SOB. Patient seen and evaluated by Dr Delong who completed a face to face encounter and physical exam, and participated in evaluation and management. (Wendy Arreola) Assessment and Plan The exam, history, and the medical decision-making described in the above note were completed with the assistance of the mid-level provider. I reviewed and agree with the findings presented. I attest that I had a [id number] encounter with the patient on the same day, and personally performed and documented my assessment and findings in the medical record. Treat chf will discuss cath if pt able to take dual platelets (Arnold Delong MD) Wendy Arreola Jan 09, 2017 16:20 Arnold Delong MD Jan 10, 2017 15:24
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
[2017-01-09] MEDS: SPIRONOLACTONE 25 MG TAB PO SCH (17:23)
[2017-01-09] MEDS: SODIUM CHLOR 0.9% 1000 ML INJ 1,000 ML IV SCH ×3 (17:39→21:54)
[2017-01-09 18:36] LABS: HEMATOCRIT 34.1 % (39.0-51.0); REVIEW FLAG FINAL
--- NOTE | 2017-01-09 18:45 | HHI.PR ---
Subjective Remarks Pt states he has been having loose stools all day. states that whenever he drank apple juice "it went right through me". no n/v/cp/sob Objective Vitals Vital Signs Date Time Temp Pulse Resp B/P (MAP) Pulse Ox O2 Delivery O2 Flow Rate FiO2 01/09/17 16:48 98.5 98 18 128/80 (96) 98 01/09/17 13:22 98.0 106 18 130/87 (101) 97 01/09/17 09:22 107 01/09/17 09:22 Room Air 01/09/17 08:55 98.4 113 20 123/79 (94) 97 01/09/17 04:00 98.6 100 18 149/80 (103) 97 01/09/17 00:00 99.0 95 18 128/85 (99) 96 01/08/17 20:15 Room Air 01/08/17 20:00 97.2 74 18 129/72 (91) 96 I/O 01/08/17 01/08/17 01/08/17 01/09/17 01/09/17 01/09/17 07:00 15:00 23:00 07:00 15:00 23:00 Intake Total 3217 ml 320 ml 1574 ml 1499 ml 480 ml 100 ml Output Total 200 ml 1200 ml 550 ml Balance 3017 ml 320 ml 1574 ml 299 ml -70 ml 100 ml Intake Oral 240 ml 480 ml IV Total 3217 ml 70 ml 1574 ml 1259 ml 100 ml Other 250 ml Output Urine Total 200 ml 1200 ml 550 ml # Bowel Movements 0 1 Result Diagram: 01/09/17 0326 01/09/17 0326 Imaging Last Impressions Myocardial Perfusion Scan Nuc Med 01/09/17 0000 Signed Impressions: Service Date/Time: Monday, January 09, 2017 09:49 - CONCLUSION: Minimal redistribution anteroseptal region. RISK CATEGORY: High (>3%% Annual Mortality Rate) Ronnell Quiles MD FACR CT Angiography 01/07/17 5511 Signed Impressions: Service Date/Time: Saturday, January 07, 2017 23:00 - CONCLUSION: Negative for pulmonary embolus. Moderate to severe coronary calcifications. Minimal dependent atelectasis in the lungs. Les Buckley MD Chest X-Ray 01/07/172200 Signed Impressions: Service Date/Time: Saturday, January 07, 2017 22:20 - CONCLUSION: No evidence of acute cardiopulmonary disease. Rajeev Loera MD Abdomen/Pelvis CT 01/07/17 2201 Signed Impressions: Service Date/Time: Saturday, January 07, 2017 23:00 - CONCLUSION: 1. No acute findings within the abdomen. Diffuse fatty liver. Moderate degenerative change of the spine. Previous right hip replacement. Les Buckley MD Head CT 01/07/17 0000 Signed Impressions: Service Date/Time: Saturday, January 07, 2017 23:54 - CONCLUSION: Normal examination for a patient of this age. Les Buckley MD Objective Remarks GENERAL: Well-nourished, well-developed patient is alert and very talkative, tangential speech EYES: EOMI ENT: trachea midline CARDIOVASCULAR:RRR w no murmurs RESPIRATORY: No accessory muscle use. Clear to auscultation. GASTROINTESTINAL: Abdomen soft, Non tender at this time. MUSCULOSKELETAL: Extremities edema. No obvious deformities. NEUROLOGICAL: Awake and alert. Motor grossly within normal limits. no reported hallucinations. A/P Problem List: (1) Hyponatremia ICD Code: E87.1 - Hypo-osmolality and hyponatremia Status: Chronic (2) Hypokalemia ICD Code: E87.6 - Hypokalemia Status: Acute (3) Anxiety ICD Code: F41.9 - Anxiety disorder, unspecified Status: Chronic (4) Elevated troponin level ICD Code: R74.8 - Abnormal levels of other serum enzymes Status: Acute (5) Hematemesis ICD Code: K92.0 - Hematemesis Status: Acute (6) Lactic acid acidosis ICD Code: E87.2 - Acidosis Status: Acute (7) EtOH dependence ICD Code: F10.20 - Alcohol dependence, uncomplicated Assessment and Plan NEURO: Alcohol dependence History of alcohol withdrawal seizures [facility] protocol Multivitamin/folate acid/thiamine supplementation daily 5 days RESP: On room air CV: Sinus tachycardia Elevated troponin Sinus tachycardia Secondary to volume depletion and DTs. Troponin elevation . He received aspirin in the ED. anticoagulation on hold due to concern for presentation with GI bleeding. 2-D Echo shows an EF 20-25% w diffuse global hypokinesis. Cardiology, Dr. Baljeet luz, started pt on medical management. They changed metoprolol to Coreg. Added low dose MELVIN and spironolactone.They recommended holding off on statin due to elevated AST likely due to alcohol. ASA 81 mg GI: Hematemesis Melena Fatty infiltration of the liver History of esophagitis/gastritis Diarrhea CT chest/abdomen/pelvis - No evidence of Boerhaave's. Reportedly had EGD in 1994 with no evidence of varices. He had esophagitis. He has had chronic NSAID exposure though none in the last couple of months. Protonix 40 mg IV every 12 hours. Octreotide. Gastroenterology following, on octreotide and IV protonix C. Diff neg. monitor diarrhea for now FEN/RENAL: Hyponatremia, likely secondary to volume depletion and alcoholism. Obtained urine creatinine and urine sodium Hypokalemia Lactic acidemia replacing electrolytes as needed. ID: Monitor for signs and symptoms of infection HEME: Initial hemoglobin is normal but he may be hemoconcentrated and significantly dehydrated given that his prior hemoglobin in September 2015 was 10.4. Serial hemoglobin every 6 hours. Type and cross sent. Platelets and coags normal. ENDO: Hyperglycemia Monitor glucose and initiate low-dose insulin sliding scale as indicated. PROPH: SCDs for DVT prophylaxis. Pharmacologic DVT prophylaxis will be avoided at this time due to concern for upper GI bleeding. Protonix as per above Discharge Planning d.c pending further work-up and clinical improvement. Problem Qualifiers (1) Hematemesis: Qualified Codes: K92.0 - Hematemesis; R11.0 - Nausea (2) EtOH dependence: Diamond Amaro MD Jan 09, 2017 18:45
[2017-01-09] MEDS: CARVEDILOL 6.25 MG TAB PO SCH (21:53)
--- NOTE | 2017-01-09 21:55 | EKG ---
Date Performed: 01/08/2017 Time Performed: 12:22:43 PTAGE: 61 years EKG: SINUS TACHYCARDIA POSSIBLE ANTERIOR MYOCARDIAL INFARCTION , OF INDETERMINATE AGE ABNORMAL E CG PREVIOUS TRACING : 01/07/2017 21.10 Compared to prior tracing no significant change DOCTOR: Josephine Cordova Interpretating Date/Time 01/09/2017 21:54:30
[2017-01-09 21:56] LABS: HEMATOCRIT 34.8 % (39.0-51.0); REVIEW FLAG FINAL
[2017-01-10] VITALS (7 sets, daily range): BP systolic 108–136; BP diastolic 59–95; PULSE 87–116; RESP 18–22; TEMP 97–98.8; O2SAT 94–98
[2017-01-10] MEDS: CHLORHEXIDINE GLUCONATE 2 % 1 PACK (2 CLOTHS) TOP SCH (04:00)
[2017-01-10] MEDS: LORazepam 1 MG TAB PO PRN ×4 (04:29→21:33)
[2017-01-10] MEDS: PANTOPRAZOLE SODIUM 40 MG VIAL IV PUSH SCH ×2 (04:30→18:00)
[2017-01-10] MEDS: MULTIVITAMIN INJ 10 ML, FOLIC ACID INJ 1 MG in SODIUM CHLORID 0.9% 500 ML INJ 500 ML IV SCH (04:30)
[2017-01-10] MEDS: ASPIRIN 325 MG TAB PO SCH (09:00)
[2017-01-10 09:19] LABS: AUTOMATED NEUTROPHIL # 3.8 TH/MM3 (1.8-7.7); BASOPHIL % 0.5 % (0.0-2.0); EOSINOPHIL # 0.1 TH/MM3 (0-0.4); HEMATOCRIT 31.1 % (39.0-51.0); LYMPH % 26.4 % (9.0-44.0); LYMPHOCYTE # 1.7 TH/MM3 (1.0-4.8); MEAN CELL VOLUME 84.3 FL (80.0-100.0); MEAN CORPUSCULAR HEMOGLOBIN 27.5 PG (27.0-34.0); MEAN CORPUSCULAR HGB CONC 32.6 % (32.0-36.0); MONO % 9.9 % (0.0-8.0); NEUT % 61.2 % (16.0-70.0); PLATELET COUNT 96 TH/MM3 (150-450); RED BLOOD COUNT 3.69 MIL/MM3 (4.50-5.90); RED CELL DISTRIBUTION WIDTH 18.1 % (11.6-17.2); WHITE BLOOD COUNT 6.3 TH/MM3 (4.0-11.0)
[2017-01-10 09:24] LABS: HEMO FLAGS AUTO DIFF
[2017-01-10 09:45] LABS: BICARBONATE 26.7 MEQ/L (21.0-32.0); MAGNESIUM 1.7 MG/DL (1.5-2.5); POTASSIUM 3.2 MEQ/L (3.5-5.1)
[2017-01-10 09:49] LABS: HDL CHOLESTEROL 65.4 MG/DL (40.0-60.0)
[2017-01-10] MEDS: OCTREOTIDE INJ 500 MCG in SODIUM CHLORID 0.9% 500 ML INJ 499.5 ML IV SCH ×2 (10:08→21:33)
[2017-01-10 10:14] LABS: PLATELET ESTIMATE SMEAR LOW (NORMAL); PLATELET MORPHOLOGY NORMAL (NORMAL); SCAN/DIFF AUTO DIFF CONFIRMED
[2017-01-10] MEDS: CARVEDILOL 6.25 MG TAB PO SCH ×2 (10:14→21:27)
[2017-01-10] MEDS: DOCUSATE SODIUM 50 MG/SENNA 8.6 MG TAB PO SCH ×2 (10:14→21:33)
[2017-01-10] MEDS: LISINOPRIL 5 MG TAB PO SCH (10:14)
[2017-01-10] MEDS: SPIRONOLACTONE 25 MG TAB PO SCH ×2 (10:14→18:00)
[2017-01-10] MEDS: SODIUM CHLORIDE 0.9% FLUSH 10 ML FLUSH IV FLUSH SCH ×2 (10:15→21:27)
--- NOTE | 2017-01-10 11:13 | PD.CARD.PN ---
Subjective Subjective Remarks The patient denies CP or SOB today. No further hematemesis or melana. (Wendy Arreola) Objective Medications Current Medications Medications (Trade) Dose Ordered Sig/Eduardo Route Start Time Stop Time Status Last Admin (Protonix Inj) 40 mg Q12H IV PUSH 01/08/17 06:00 01/10/17 04:30 Octreotide Acetate 500 mcg/ Sodium Chloride 500 ml @ 50 mls/hr Q10H IV 01/08/17 05:39 01/10/17 10:08 (Morphine Inj) 2 mg Q2H PRN IV PUSH 01/08/17 05:45 01/08/17 12:00 (Zofran Inj) 4 mg Q6H PRN IV PUSH 01/08/17 05:45 01/08/17 12:00 Miscellaneous Information 1 Q361D XX 01/08/17 05:45 01/08/17 05:45 (Chlorhexidine 2% Cloth) 3 pack Taper DAILY@04 TOP 01/09/17 04:00 01/05/18 03:59 01/10/17 04:00 (Chlorhexidine 2% Cloth) 3 pack UNSCH PRN TOP 01/08/17 05:45 (Alma-Colace) 1 tab BID PO 01/08/17 09:00 01/10/17 10:14 (Milk Of Magnesia Liq) 30 ml Q12H PRN PO 01/08/17 05:45 (Senokot) 17.2 mg Q12H PRN PO 01/08/17 05:45 (Dulcolax Supp) 10 mg DAILY PRN RECTAL 01/08/17 05:45 (Lactulose Liq) 30 ml DAILY PRN PO 01/08/17 05:45 (NS Flush) 2 ml UNSCH PRN IV FLUSH 01/08/17 06:00 (NS Flush) 2 ml BID IV FLUSH 01/08/17 09:00 01/10/17 10:15 Multivitamins 10 ml/Folic Acid 1 mg/Sodium Chloride 510.2 ml @ 125 mls/hr Q24H IV 01/08/17 06:00 01/13/17 05:59 01/10/17 04:30 (Romazicon Inj) 0.2 mg Q1M PRN IV PUSH 01/08/17 06:00 (Ativan) 1 mg Q4H PRN PO 01/08/17 06:00 01/10/17 04:29 (Ativan Inj) 1 mg Q4H PRN IV PUSH 01/08/17 06:00 (Ativan) 2 mg Q2H PRN PO 01/08/17 06:00 (Ativan Inj) 2 mg Q2H PRN IV PUSH 01/08/17 06:00 (Ativan Inj) 2 mg Q1H PRN IV PUSH 01/08/17 06:00 (Ativan Inj) 2 mg Q15M PRN IV PUSH 01/08/17 06:00 Sodium Chloride 1,000 ml @ 100 mls/hr Q10H IV 01/08/17 11:15 01/09/17 21:54 (Aspirin) 81 mg DAILY PO 01/09/17 09:00 01/09/17 12:04 (Coreg) 6.25 mg Q12HR PO 01/09/17 21:00 01/10/17 10:14 (Prinivil) 5 mg DAILY PO 01/10/17 09:00 01/10/17 10:14 (Aldactone) 25 mg BID@09,18 PO 01/09/17 18:00 01/10/17 10:14 Vital Signs / I&O Vital Signs Date Time Temp Pulse Resp B/P (MAP) Pulse Ox O2 Delivery O2 Flow Rate FiO2 01/10/17 08:00 98.5 90 18 136/95 (109) 98 01/10/17 04:00 98.6 116 22 108/59 (75) 94 01/10/17 00:00 98.6 110 18 117/80 (92) 95 01/09/17 20:30 Room Air 01/09/17 20:30 106 01/09/17 20:00 98.8 114 20 134/77 (96) 96 01/09/17 16:48 98.5 98 18 128/80 (96) 98 01/09/17 13:22 98.0 106 18 130/87 (101) 97 I/O 01/09/17 01/09/17 01/09/17 01/10/17 01/10/17 01/10/17 07:00 15:00 23:00 07:00 15:00 23:00 Intake Total 1499 ml 580 ml 2813 ml 880 ml Output Total 1200 ml 550 ml 2600 ml Balance 299 ml 30 ml 2813 ml -1720 ml Intake Oral 240 ml 480 ml 880 ml IV Total 1259 ml 100 ml 2813 ml Output Urine Total 1200 ml 550 ml 2600 ml # Bowel Movements 1 0 Physical Exam GENERAL: Middle age male, NAD SKIN: Warm and dry. HEAD: Normocephalic. EYES: No scleral icterus. No injection or drainage. NECK: Supple, trachea midline. No JVD or lymphadenopathy. CARDIOVASCULAR: Regular rate and rhythm without murmurs, gallops, or rubs. RESPIRATORY: Breath sounds equal bilaterally. No accessory muscle use. GASTROINTESTINAL: Abdomen soft, non-tender, nondistended. MUSCULOSKELETAL: No cyanosis, or edema. BACK: Nontender without obvious deformity. No CVA tenderness. Laboratory Laboratory Tests Test 01/09/17 14:30 01/09/17 17:46 01/09/17 17:50 01/10/17 08:05 Stool C. difficile Toxin (PCR) NEGATIVE Stl C. difficile Toxin Epiderm 027 PRESUMPTIVE NEGATIVE Hemoglobin 11.1 GM/DL 11.1 GM/DL 10.2 GM/DL Hematocrit 34.8 % 34.1 % 31.1 % White Blood Count 6.3 TH/MM3 Red Blood Count 3.69 MIL/MM3 Mean Corpuscular Volume 84.3 FL Mean Corpuscular Hemoglobin 27.5 PG Mean Corpuscular Hemoglobin Concent 32.6 % Red Cell Distribution Width 18.1 % Platelet Count 96 TH/MM3 Mean Platelet Volume 8.0 FL Neutrophils (%) (Auto) 61.2 % Lymphocytes (%) (Auto) 26.4 % Monocytes (%) (Auto) 9.9 % Eosinophils (%) (Auto) 2.0 % Basophils (%) (Auto) 0.5 % Neutrophils # (Auto) 3.8 TH/MM3 Lymphocytes # (Auto) 1.7 TH/MM3 Monocytes # (Auto) 0.6 TH/MM3 Eosinophils # (Auto) 0.1 TH/MM3 Basophils # (Auto) 0.0 TH/MM3 CBC Comment AUTO DIFF Differential Comment AUTO DIFF CONFIRMED Platelet Estimate LOW Platelet Morphology Comment NORMAL Blood Urea Nitrogen 3 MG/DL Creatinine 0.69 MG/DL Random Glucose 124 MG/DL Calcium Level 7.7 MG/DL Magnesium Level 1.7 MG/DL Sodium Level 130 MEQ/L Potassium Level 3.2 MEQ/L Chloride Level 96 MEQ/L Carbon Dioxide Level 26.7 MEQ/L Anion Gap 7 MEQ/L Estimat Glomerular Filtration Rate 116 ML/MIN Triglycerides Level 104 MG/DL Cholesterol Level 147 MG/DL LDL Cholesterol 61 MG/DL HDL Cholesterol 65.4 MG/DL Cholesterol/HDL Ratio 2.24 RATIO Imaging Last 72 hours Impressions Myocardial Perfusion Scan Nuc Med 01/09/17 0000 Signed Impressions: Service Date/Time: Monday, January 09, 2017 09:49 - CONCLUSION: Minimal redistribution anteroseptal region. RISK CATEGORY: High (>3%% Annual Mortality Rate) Ronnell Quiles MD FACR CT Angiography 01/07/172252 Signed Impressions: Service Date/Time: Saturday, January 07, 2017 23:00 - CONCLUSION: Negative for pulmonary embolus. Moderate to severe coronary calcifications. Minimal dependent atelectasis in the lungs. Les Buckley MD Chest X-Ray 01/07/172200 Signed Impressions: Service Date/Time: Saturday, January 07, 2017 22:20 - CONCLUSION: No evidence of acute cardiopulmonary disease. Rajeev Loera MD Abdomen/Pelvis CT 01/07/172200 Signed Impressions: Service Date/Time: Saturday, January 07, 2017 23:00 - CONCLUSION: 1. No acute findings within the abdomen. Diffuse fatty liver. Moderate degenerative change of the spine. Previous right hip replacement. Les Buckley MD (Wendy Arreola) Assessment and Plan Assessment and Plan Elevated troponin with evidence of moderate to severe coronary calcification on imaging. Abnormal cardiac stress test. High risk study based on low EF. No reversible ischemia. Moderate to severe CAD on CT pulm angiogram. Cardiomyopathy EF 20-25% echo, lexiscan 29%. Likely alcoholic cardiomyopathy. History of non sustained supraventricular tachycardia. Hypokalemia, improving PLAN Cardiac cath tomorrow 1330. NPO tonight. Dr Monsivais approved for patient to start dual antiplatelet therapy if coronary stent required. Discussed risks of cardiac cath including stroke, , and heart attack. Patient understands. Continue Aldactone, ASA, Coreg and Lisinopril. Discussed importance of avoiding alcohol. Patient seen and evaluated by Dr Delong who completed a face to face encounter and physical exam, and participated in evaluation and management. (Wendy Arreola) Assessment and Plan The exam, history, and the medical decision-making described in the above note were completed with the assistance of the mid-level provider. I reviewed and agree with the findings presented. I attest that I had a [id number] encounter with the patient on the same day, and personally performed and documented my assessment and findings in the medical record. High risk nuclear Risks of cath , bleeding stroke etc reviewed will proceed tomorrow (Arnold Delong MD) Wendy Arreola Jan 10, 2017 11:13 Arnold Delong MD Jan 10, 2017 15:50
--- NOTE | 2017-01-10 11:37 | HHI.PR ---
Subjective Remarks Pt feeling better, no nausea or vomiting. no CP/SOB/ diarrhea resolved. Objective Vitals Vital Signs Date Time Temp Pulse Resp B/P (MAP) Pulse Ox O2 Delivery O2 Flow Rate FiO2 01/10/17 08:00 98.5 90 18 136/95 (109) 98 01/10/17 04:00 98.6 116 22 108/59 (75) 94 01/10/17 00:00 98.6 110 18 117/80 (92) 95 01/09/17 20:30 Room Air 01/09/17 20:30 106 01/09/17 20:00 98.8 114 20 134/77 (96) 96 01/09/17 16:48 98.5 98 18 128/80 (96) 98 01/09/17 13:22 98.0 106 18 130/87 (101) 97 I/O 01/09/17 01/09/17 01/09/17 01/10/17 01/10/17 01/10/17 07:00 15:00 23:00 07:00 15:00 23:00 Intake Total 1499 ml 580 ml 2813 ml 880 ml Output Total 1200 ml 550 ml 2600 ml Balance 299 ml 30 ml 2813 ml -1720 ml Intake Oral 240 ml 480 ml 880 ml IV Total 1259 ml 100 ml 2813 ml Output Urine Total 1200 ml 550 ml 2600 ml # Bowel Movements 1 0 Result Diagram: 01/10/17 0801/10/17804 Imaging Last Impressions Myocardial Perfusion Scan Nuc Med 01/09/17 0000 Signed Impressions: Service Date/Time: Monday, January 09, 2017 09:49 - CONCLUSION: Minimal redistribution anteroseptal region. RISK CATEGORY: High (>3%% Annual Mortality Rate) Ronnell Quiles MD FACR CT Angiography 01/07/172252 Signed Impressions: Service Date/Time: Saturday, January 07, 2017 23:00 - CONCLUSION: Negative for pulmonary embolus. Moderate to severe coronary calcifications. Minimal dependent atelectasis in the lungs. Les Buckley MD Chest X-Ray 01/07/172200 Signed Impressions: Service Date/Time: Saturday, January 07, 2017 22:20 - CONCLUSION: No evidence of acute cardiopulmonary disease. Rajeev Loera MD Abdomen/Pelvis CT 01/07/172200 Signed Impressions: Service Date/Time: Saturday, January 07, 2017 23:00 - CONCLUSION: 1. No acute findings within the abdomen. Diffuse fatty liver. Moderate degenerative change of the spine. Previous right hip replacement. Les Buckley MD Head CT 01/07/17 0000 Signed Impressions: Service Date/Time: Saturday, January 07, 2017 23:54 - CONCLUSION: Normal examination for a patient of this age. Les Buckley MD Objective Remarks GENERAL: Well-nourished, well-developed patient is alert and talkative EYES: EOMI ENT: trachea midline CARDIOVASCULAR:RRR w no murmurs RESPIRATORY: No accessory muscle use. Clear to auscultation. GASTROINTESTINAL: Abdomen soft, Non tender at this time. MUSCULOSKELETAL: Extremities edema. No obvious deformities. NEUROLOGICAL: Awake and alert. Motor grossly within normal limits. no reported hallucinations. A/P Problem List: (1) Hyponatremia ICD Code: E87.1 - Hypo-osmolality and hyponatremia Status: Chronic (2) Hypokalemia ICD Code: E87.6 - Hypokalemia Status: Acute (3) Anxiety ICD Code: F41.9 - Anxiety disorder, unspecified Status: Chronic (4) Elevated troponin level ICD Code: R74.8 - Abnormal levels of other serum enzymes Status: Acute (5) Hematemesis ICD Code: K92.0 - Hematemesis Status: Acute (6) Lactic acid acidosis ICD Code: E87.2 - Acidosis Status: Acute (7) EtOH dependence ICD Code: F10.20 - Alcohol dependence, uncomplicated Assessment and Plan NEURO: Alcohol dependence History of alcohol withdrawal seizures [facility] protocol Multivitamin/folate acid/thiamine supplementation daily 5 days RESP: On room air CV: Sinus tachycardia Elevated troponin Sinus tachycardia Secondary to volume depletion and DTs. Troponin elevation . He received aspirin in the ED. anticoagulation on hold due to concern for presentation with GI bleeding, however I discussed w Dr. Monsivais and from her stand point pt can be on dual platelet therapy if needed. Discussed w cards, plan is for pt to go to cath tomorrow. 2-D Echo shows an EF 20-25% w diffuse global hypokinesis. Cardiology, Dr. Delong following, started pt on medical management. They changed metoprolol to Coreg. Added low dose MELVIN and spironolactone.They recommended holding off on statin due to elevated AST likely due to alcohol. ok to resume ASA 81mg per GI. I have notified cards and they have restarted it. GI: Hematemesis Melena Fatty infiltration of the liver History of esophagitis/gastritis Diarrhea CT chest/abdomen/pelvis - No evidence of Boerhaave's. Reportedly had EGD in 1994 with no evidence of varices. He had esophagitis. He has had chronic NSAID exposure though none in the last couple of months. Protonix 40 mg IV every 12 hours. Octreotide. Gastroenterology following, on octreotide and IV protonix C. Diff neg. monitor diarrhea for now EGD showed gastritis/esophagitis/duodenitis Hb stable 10.2. monitor closely as he is being restarted on ASA FEN/RENAL: Hyponatremia, likely secondary to volume depletion and alcoholism. Obtained urine creatinine and urine sodium Hypokalemia Lactic acidemia replacing electrolytes as needed. ID: Monitor for signs and symptoms of infection HEME: monitor Hb closely. Today Hb 10.2 ENDO: Hyperglycemia Monitor glucose and initiate low-dose insulin sliding scale as indicated. PROPH: SCDs for DVT prophylaxis. ASA resumed today, will start heparin Discharge Planning pt is scheduled for a cardiac cath tomorrow. Problem Qualifiers (1) Hematemesis: Qualified Codes: K92.0 - Hematemesis; R11.0 - Nausea (2) EtOH dependence: Diamond Amaro MD Jan 10, 2017 11:37
[2017-01-10] MEDS: ASPIRIN 81 MG CHEW TAB CHEW SCH (12:42)
[2017-01-10] MEDS: SODIUM CHLOR 0.9% 1000 ML INJ 1,000 ML IV SCH ×3 (12:44→21:28)
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
[2017-01-10 18:44] LABS: AUTOMATED NEUTROPHIL # 4.3 TH/MM3 (1.8-7.7); BASOPHIL % 0.4 % (0.0-2.0); EOSINOPHIL # 0.1 TH/MM3 (0-0.4); EOSINOPHIL % 2.2 % (0.0-4.0); HEMATOCRIT 32.5 % (39.0-51.0); HEMO FLAGS DIFF FINAL; LYMPH % 23.4 % (9.0-44.0); LYMPHOCYTE # 1.5 TH/MM3 (1.0-4.8); MEAN CORPUSCULAR HEMOGLOBIN 27.5 PG (27.0-34.0); MEAN CORPUSCULAR HGB CONC 32.4 % (32.0-36.0); MONO % 8.8 % (0.0-8.0); NEUT % 65.2 % (16.0-70.0); PLATELET COUNT 101 TH/MM3 (150-450); RED BLOOD COUNT 3.82 MIL/MM3 (4.50-5.90); RED CELL DISTRIBUTION WIDTH 18.4 % (11.6-17.2); WHITE BLOOD COUNT 6.6 TH/MM3 (4.0-11.0)
[2017-01-10 18:59] LABS: PROTHROMBIN TIME - PATIENT 10.7 SEC (9.8-11.6)
[2017-01-10 19:07] LABS: BICARBONATE 28.6 MEQ/L (21.0-32.0); POTASSIUM 3.5 MEQ/L (3.5-5.1)
[2017-01-10] MEDS ORDERED: HEPARIN SODIUM - SQ 10,000 UNITS/ML VIAL SQ SCH (21:00)
[2017-01-11] VITALS (7 sets, daily range): BP systolic 116–140; BP diastolic 74–98; PULSE 74–98; RESP 16–20; TEMP 98–98.7; O2SAT 98–99
[2017-01-11] MEDS: OCTREOTIDE INJ 500 MCG in SODIUM CHLORID 0.9% 500 ML INJ 499.5 ML IV SCH ×2 (03:39→13:39)
[2017-01-11] MEDS: CHLORHEXIDINE GLUCONATE 2 % 1 PACK (2 CLOTHS) TOP SCH (04:00)
[2017-01-11] MEDS: MULTIVITAMIN INJ 10 ML, FOLIC ACID INJ 1 MG in SODIUM CHLORID 0.9% 500 ML INJ 500 ML IV SCH (06:20)
[2017-01-11] MEDS: PANTOPRAZOLE SODIUM 40 MG VIAL IV PUSH SCH (06:20)
[2017-01-11] MEDS: LORazepam 1 MG TAB PO PRN (06:26)
[2017-01-11] MEDS ORDERED: HEPARIN-NS/PF INJ 1,000 ML ONE (07:07)
[2017-01-11] MEDS ORDERED: MIDAZOLAM HCL 2 MG/2 ML VIAL ONE (07:07)
--- NOTE | 2017-01-11 08:01 | CATHPROC ---
[employer] HIS Report Study Information Study Number Admission Scheduled Start Study Start [id number] Jan 08 2017 12:52AM 01/10/2017 Jan 11 2017 6:49AM [place] Service Cardiac Catheterization Admit Source Facility Department Emergency department [facility] - [id number] Consultant Physician and Clinical Staff Initial Arnold Mckeon [employer] Cutter Richard Francois,MARIA DEL ROSARIO [employer] Cutter Jon Shen RN Recorder Skyler Solares RT(R) Recorder Samantha Tubbs RCIS TECH2 Scrub Gibran Leigh RCIS(BS) Procedures Performed Procedure Location (Site) Vessel Name Angiogram LV LV Ventricle Coronary Angiograms LCA Left Coronary Coronary Angiograms RCA Right Coronary Equipment Time Pneumatic Tool Repairer Description Size Mfg Part Number Used/Scraped TRANSDUCER, DONI [id number] 06:52 Page2Images * Used W/STOCKCOCK *[id number]- INTRODUCER SET, 07:17 [employer] FR 5 SC-NT-U-SST Used MICROPUNCTURE, STIFFENED *[id number] 538-476 *[id number] 538-420 *[id number] 538-421 *[id number] 538-453S *[id number] 06:52 MEDLINE IND[employer] PACK, CCL CUSTOM * Used *[id number] 06:52 [employer]mp PACER PEN, SKIN DUAL W/ RULER * Used *[id number] 06:52 Remind WIRE, 3MMJ .035 180CM 180CM Used *[id number] PROBE COVER, STERILE [id number] 06:52 [employer] MEDICAL * Used ULTRASOUND W/ GEL *[id number] 06:52 NAMIC MANIFOLD, 4 PORT * Used *[id number] 06:52 NYCOMED OMNIPAQUE, 350 MG, 150ML 150ML [id number] Used [id number] 06:52 isocket MEDICAL BLANKET,WARM AIR CCL * Used *[id number] 06:52 eigitalUMmorphCARD MEDICAL SHEATH, FR4 TERUMO (10CM) FR 4 Used *[id number] Equipment Model, Serial, Lot Number and Expiration Data Description Model Number Serial Number Lot Number Expiration Date INTRODUCER SET, [id number] 11-27-2019 MICROPUNCTURE, STIFFENED History: Allergies Allergy Reaction No Known Allergies History: Risk Factors Family History of Hypertension Dyslipidemia Previous IL Previous Heart Failure Premature CAD No No No No No Prior Valve Prior PCI Prior CABG Surgery No No No Cerebrovascular Peripheral Artery Chronic Lung On Dialysis Diabetes Disease Disease Disease No No No No No History: Stress Tests Stress or Imaging Studies Performed Yes Standard Exercise Stress Test No Stress Echo No Stress Test SPECT No Stress Test CMR No Cardiac CTA Cardiac CTA Result Coronary Calcium Score Yes Unavailable No History: Arrhythmias Selection Items Non-sustained VT Labs Hgb (g/dl) Hct (%) WBC (l/cumm) Platelets (thousands) 11.60-17.00 35.00-51.00 4.00-11.00 150.00-450.00 10.5 32.5 6.6 101 Glucose (mg/dl) BUN (mg/dl) Creatinine (mg/dl) BUN:Creatinine (1:x) 74.00-106.00 7.00-18.00 0.50-1.30 10.00-20.00 120 6 1.0 6 Na (meq/l) K (meq/l) Cl (meq/l) Ca (mg/dl) 136.00-145.00 3.50-5.10 98.00-107.00 8.50-10.10 135 3.5 100 8 PT (sec) PTT (sec) INR (PTT:PT) 9.80-11.60 24.30-30.10 0.90-1.10 10.7 24 1 Troponin I (ng/ml) CPK (u/l) CPK-MB (ng/ML) 0.02-0.05 26.00-308.00 0.50-3.60 0.9 584 4.4 Medication Medication Total Dose (Bolus/Oral) Medication Total Dosage/Unit 1% XYLOCAINE 20 mL FENTANYL 50 mcg VERSED 2 mg Medications (Bolus/Oral) Medication Time Given Dosage/Unit Administered By Reason VERSED 01/11/2017 7:30:45 AM 2 mg Richard Francois 2 mg VERSED given in lab by Richard Francois RN in Right Antecubital via Peripheral IV. Ordered by Arnold Ferris. FENTANYL 01/11/2017 7:31:04 AM 50 mcg Richard Francois 50 mcg FENTANYL given in lab by Richard Francois RN in Right Antecubital via Peripheral IV. Ordered by Arnold Delong. 1% XYLOCAINE 01/11/2017 7:31:27 AM 20 mL Arnold Delong 20 mL 1% XYLOCAINE given in lab by Arnold Delong in Right Groin via Subcutaneous. Ordered by Arnold Ávlarez. Medication (Drip) Medication Time Given Dosage/Unit Concentration/Unit Diluent (ml) Solutio n IV Solutions 01/11/2017 7:12:41 AM 0 mL (IV) 500 NaCl .9 Patient arrived on IV Solutions in Right Antecubital via Peripheral IV. Pump/Drip Flow = 20 ml/hr usi ng NaCl .9. Initial Case Assessment Cardiovascular HR Rhythm NIBP Chest Pain 86 sr 145/106 0 Circulatory - Right Pulses Dorsalis Pedis Femoral 3 2 Scale (0,1,2,3,4,d) Circulatory - Left Pulses Dorsalis Pedis Femoral 1 2 Scale (0,1,2,3,4,d) Neurological State Oriented to time-place- Alert Moves all extremities person Respiration - General Respiration Rate SpO2 (%) (B/min) 17 100 Final Case Assessment Cardiovascular HR Rhythm NIBP Chest Pain 90 sr 130/94 0 Edema Present Skin color Skin None Normal Warm Dry Circulatory - Right Pulses Dorsalis Pedis Femoral 3 2 Scale (0,1,2,3,4,d) Circulatory - Left Pulses Dorsalis Pedis Femoral 1 2 Scale (0,1,2,3,4,d) Neurological State Oriented to time-place- Alert Moves all extremities person Respiration - General Respiration Rate SpO2 (%) O2 (lpm) (B/min) 18 94 0 Chronological Log Time Study Chronological Log 7:05:17 Patient arrived via Bed. 7:05:18 Patient Name, D.O.B, / Armband Verified By R.N. 7:05:21 Pre-op and post- op instructions given; patient acknowledges understanding of instructions. 7:05:23 Verbal Stimulation=2 Physical Stimulation=2 Airway=2 Respiration=2 TOTAL=8. (0=absent, 1=sevilla ited, 2=present) Vitals capture started with the following parameters, Patient=Adult, Interval=5 min, Initial Pre plpyu=596 mmHg, 7:09:33 Deflation Rate=5 mmHg, Cuff placed on Left Arm 7:10:09 HR=87 bpm, NCGI=317/106 mmhg, WpU8=884.0 %, Resp=19 B/min 7:12:19 Presedation assessment performed by [facility] Consultant RN. 7:12:34 Patient has been NPO for More than 6Hrs. 7:12:35 Skin Breakdown-none 7:12:37 Nathan Prominences Protected 7:12:40 A # 20 IV was noted in the Antecubital (right). Grade = patent 7:12:41 Patient arrived on IV Solutions in Right Antecubital via Peripheral IV. Pump/Drip Flow = 20 ml/hr using NaCl .9. 7:12:42 A # 22 IV was noted in the Wrist (right). Grade = not in use 7:12:45 History and physical on the chart or being dictated. Assessment: Initial Case, HR=86 BPM, Rhythm=sr, IAHH=129/106 mmhg, Chest Pain=0 Right Pulses: Homero Ped=3, Femoral=2 7:12:48 Left Pulses: Homero Ped=1, Femoral=2 Neurological: State=Alert, Ox3, BRAVO Respiration: Resp=17 B/min, BjE3=293 % 7:15:10 HR=83 bpm, OLPY=774/100 mmhg, SpO2=99.0 %, Resp=11 B/min 7:19:50 Bilateral groins prepped with 2% chlorhexidine, and draped after a 3 min. waiting time. 7:20:11 HR=90 bpm, SWEK=846/109 mmhg, SpO2=99.0 %, Resp=13 B/min 7:20:51 MD paged 7:22:01 Reference ECG taken 7:24:22 Pressure channel 1 zeroed. 7:25:12 HR=86 bpm, IXOP=170/98 mmhg, SpO2=98.0 %, Resp=20 B/min 7:27:29 MD arrived. Time Out. Correct patient, correct procedure,correct physician, power injector loaded with contr ast with surgical team 7:29:55 present. Time Out Concurred by MD and individual staff in procedure 7:30:11 HR=92 bpm, BGUC=886/100 mmhg, SpO2=98.0 %, Resp=14 B/min 7:30:45 2 mg VERSED given in lab by Richard Francois, RN in Right Antecubital via Peripheral IV. Order ed by Arnold Delong. 50 mcg FENTANYL given in lab by Richard Francois RN in Right Antecubital via Peripheral IV. Order ed by Baljeet, 7:31:04 Arnold. 7:31: Case Start 20 mL 1% XYLOCAINE given in lab by Arnold Deolng in Right Groin via Subcutaneous. Ordered by Baljeet, 7:31:27 Arnold. 7:33:21 Access site was Right Femoral Artery. A INTRODUCER SET, MICROPUNCTURE, STIFFENED FR 5 was advanced into the Fem Art (right) using the 7:33:28 Percutaneous technique. A SHEATH, FR4 TERUMO (10CM) FR 4 was exchanged in the Fem Art (right). This was necessary in ord er to 7:33:34 accomodate a larger catheter. A JL 4.0 INFINITI CATHETER FR 4 was advanced over a wire. OMNIPAQUE, 350 MG, 150ML 150ML was use d for 7:33:55 injections. 7:35:12 HR=88 bpm, JKIZ=067/86 mmhg, SpO2=95 %, Resp=16 B/min 7:36:25 The LCA was injected and visualized at various angles. OMNIPAQUE, 350 MG, 150ML 150ML used . Recorded Pressure: Ao, HR=83, Condition=Condition 1 7:36:26 (Aorta) Ao 120/73/94 7:38:07 Catheter was removed A JR 4.0 INFINITI CATHETER FR 4 was advanced over a wire. OMNIPAQUE, 350 MG, 150ML 150ML was us ed for 7:38:10 injections. 7:40:09 HR=83 bpm, JANU=788/88 mmhg, SpO2=81.0 %, Resp=19 B/min, Acosta=2 7:41:53 Catheter was removed A 3DRC INFINITI CATHETER FR 4 was advanced over a wire. OMNIPAQUE, 350 MG, 150ML 150ML was used for 7:41:55 injections. 7:42:50 The RCA was injected and visualized at various angles. OMNIPAQUE, 350 MG, 150ML 150ML used . 7:43:35 Catheter was removed A PIGTAIL ANG. INFINITI CATHETER FR 4 was advanced over a wire. OMNIPAQUE, 350 MG, 150ML 150ML was used 7:43:55 for injections. Recorded Pressure: LV, HR=84, Condition=Condition 1 7:44:51 (Left Ventricle) LV 119/9/13 7:45:10 The LV was injected at 8 cc/sec for a total of 32. OMNIPAQUE, 350 MG, 150ML 150ML used. 7:45:12 HR=87 bpm, MCXX=815/86 mmhg, SpO2=90.0 %, Resp=13 B/min, Acosta=2 Recorded Pressure: LV, Ao, HR=87, Condition=Condition 1 7:46:18 (Left Ventricle) LV 114/7/12, (Aorta) Ao 126/61/93 7:46:51 Catheter was removed Assessment: Final Case, HR=90 BPM, Rhythm=sr, KGQA=336/94 mmhg, Chest Pain=0, Edema=None, Color =Normal, Skin = Warm, Dry Right Pulses: Homero Ped=3, Femoral=2 7:50:06 Left Pulses: Homero Ped=1, Femoral=2 Neurological: State=Alert, Ox3, BRAVO Respiration: Resp=18 B/min, SpO2=94 %, O2=0 lpm 7:50:11 HR=89 bpm, RJSQ=502/94 mmhg, SpO2=94.0 %, Resp=17 B/min, Acosta=2 7:51:32 Catheter(s) removed without difficulty 7:51:44 Sterile dressing applied to site 7:51:46 No case complications noted. 7:51:49 Cine recording checked. 7:51:58 Bedside Report will be given. 7:52:05 Contrast Scanned 7:52:37 Patient moved to stretcher 7:55:04 Vitals capture stopped. End Study - Contrast Media Used In Study Contrast Total Opened (mL) Total Used (mL) Total Wasted (mL) Omnipaque 55 55 0 End Study - Maximum Contrast Load Max Contrast Load (mL) 492.5 End Study - Radiation Exposure Fluoro Time (minutes) 3.8 End Study - Patient Disposition Complications Transferred To Interventional Outcome No Telemetry Bed No attempt made
[2017-01-11] MEDS: CARVEDILOL 6.25 MG TAB PO SCH ×2 (09:00→20:09)
[2017-01-11] MEDS: SPIRONOLACTONE 25 MG TAB PO SCH ×2 (09:00→18:38)
[2017-01-11] MEDS: LISINOPRIL 5 MG TAB PO SCH (09:00)
[2017-01-11] MEDS: ASPIRIN 81 MG CHEW TAB CHEW SCH (09:00)
[2017-01-11] MEDS: DOCUSATE SODIUM 50 MG/SENNA 8.6 MG TAB PO SCH ×2 (09:00→20:09)
[2017-01-11] MEDS: SODIUM CHLORIDE 0.9% FLUSH 10 ML FLUSH IV FLUSH SCH ×2 (09:00→20:09)
[2017-01-11] MEDS: SODIUM CHLOR 0.9% 1000 ML INJ 1,000 ML IV SCH ×3 (09:15→19:15)
[2017-01-11] MEDS ORDERED: SODIUM CHLOR 0.9% 1000 ML INJ 1,000 ML IV SCH (09:39)
[2017-01-11] MEDS ORDERED: MISC INFORMATION XX ONE (09:45)
[2017-01-11] MEDS ORDERED: IOHEXOL 350 MG/ML 100 ML BTL (for Cath Lab) OTHER ONE (15:02)
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
--- NOTE | 2017-01-11 18:14 | HHI.PR ---
Subjective Remarks Pt seen in DOCU post cardiac cath. States he feels very anxious and would like some ativan. no CP/abdominal pain/nausea or vomiting. Objective Vitals Vital Signs Date Time Temp Pulse Resp B/P (MAP) Pulse Ox O2 Delivery O2 Flow Rate FiO2 01/11/17 16:45 92 16 140/98 (112) 98 01/11/17 07:58 98 Room Air 01/11/17 04:00 98.7 98 16 116/74 (88) 98 01/11/17 00:00 98.1 91 18 133/89 (104) 99 01/10/17 20:15 Room Air 01/10/17 20:15 88 01/10/17 20:00 98.8 98 18 127/82 (97) 97 I/O 01/10/17 01/10/17 01/10/17 01/11/17 01/11/17 01/11/17 07:00 15:00 23:00 07:00 15:00 23:00 Intake Total 880 ml 960 ml 480 ml Output Total 2600 ml 1500 ml 2800 ml Balance -1720 ml -540 ml -2320 ml Intake Oral 880 ml 960 ml 480 ml Output Urine Total 2600 ml 1500 ml 2800 ml # Bowel Movements 0 0 0 Result Diagram: 01/10/175 01/10/171814 Imaging Last Impressions Myocardial Perfusion Scan Nuc Med 01/09/17 0000 Signed Impressions: Service Date/Time: Monday, January 09, 2017 09:49 - CONCLUSION: Minimal redistribution anteroseptal region. RISK CATEGORY: High (>3%% Annual Mortality Rate) Ronnell Quiles MD FACR CT Angiography 01/07/172252 Signed Impressions: Service Date/Time: Saturday, January 07, 2017 23:00 - CONCLUSION: Negative for pulmonary embolus. Moderate to severe coronary calcifications. Minimal dependent atelectasis in the lungs. Les Buckley MD Chest X-Ray 01/07/172200 Signed Impressions: Service Date/Time: Saturday, January 07, 2017 22:20 - CONCLUSION: No evidence of acute cardiopulmonary disease. Rajeev Loera MD Abdomen/Pelvis CT 01/07/172200 Signed Impressions: Service Date/Time: Saturday, January 07, 2017 23:00 - CONCLUSION: 1. No acute findings within the abdomen. Diffuse fatty liver. Moderate degenerative change of the spine. Previous right hip replacement. Les Buckley MD Head CT 01/07/17 0000 Signed Impressions: Service Date/Time: Saturday, January 07, 2017 23:54 - CONCLUSION: Normal examination for a patient of this age. Les Buckley MD Objective Remarks GENERAL: laying in bed, anxious. EYES: EOMI ENT: trachea midline CARDIOVASCULAR:RRR w no murmurs RESPIRATORY: No accessory muscle use. Clear to auscultation. GASTROINTESTINAL: Abdomen soft, Non tender at this time. MUSCULOSKELETAL: Extremities edema. No obvious deformities. right groin dressing d/c/i NEUROLOGICAL: Awake and alert. Motor grossly within normal limits. no reported hallucinations. A/P Problem List: (1) Hyponatremia ICD Code: E87.1 - Hypo-osmolality and hyponatremia Status: Chronic (2) Hypokalemia ICD Code: E87.6 - Hypokalemia Status: Acute (3) Anxiety ICD Code: F41.9 - Anxiety disorder, unspecified Status: Chronic (4) Elevated troponin level ICD Code: R74.8 - Abnormal levels of other serum enzymes Status: Acute (5) Hematemesis ICD Code: K92.0 - Hematemesis Status: Acute (6) Lactic acid acidosis ICD Code: E87.2 - Acidosis Status: Acute (7) EtOH dependence ICD Code: F10.20 - Alcohol dependence, uncomplicated Assessment and Plan Alcohol dependence History of alcohol withdrawal seizures [facility] protocol Multivitamin/folate acid/thiamine supplementation daily 5 days Sinus tachycardia Elevated troponin Sinus tachycardia Secondary to volume depletion and DTs. Troponin elevation . He received aspirin in the ED. anticoagulation on hold due to concern for presentation with GI bleeding, however I discussed w Dr. Monsivais and from her stand point pt can be on dual platelet therapy if needed. Discussed w cards, plan is for pt to go to cath tomorrow. 2-D Echo shows an EF 20-25% w diffuse global hypokinesis. Cardiology, Dr. Delong following, s/p cardiac cath today. per cadiology pt can be discharged from their standpoint. continue ASA, Maximo-i, coreg, and aldactone. Pt will need a statin however w the elevated LFTs recommend starting once back to normal. Official cardiac cath not yet available ok to resume ASA 81mg per GI. Hematemesis Melena Fatty infiltration of the liver History of esophagitis/gastritis Diarrhea CT chest/abdomen/pelvis - No evidence of Boerhaave's. Reportedly had EGD in 1994 with no evidence of varices. He had esophagitis. He has had chronic NSAID exposure though none in the last couple of months. Protonix 40 mg IV every 12 hours. IV Octreotide. Discussed w GI and ok to d/c octreotide and switch pt to po protonix. C. Diff neg. monitor diarrhea for now EGD showed gastritis/esophagitis/duodenitis Monitor Hb. Hyponatremia, likely secondary to volume depletion and alcoholism. Obtained urine creatinine and urine sodium Hypokalemia Lactic acidemia replacing electrolytes as needed. Hyperglycemia Monitor glucose and initiate low-dose insulin sliding scale as indicated. Anxiety: ativan prn. pt to f/u w PCP for outpatient management PROPH: heparin Discharge Planning monitor overnight and anticipate d/c in AM Problem Qualifiers (1) Hematemesis: Qualified Codes: K92.0 - Hematemesis; R11.0 - Nausea (2) EtOH dependence: Diamond Amaro MD Jan 11, 2017 18:14
[2017-01-11] MEDS: LORazepam 0.5 MG TAB PO PRN (18:38)
[2017-01-11] MEDS: PANTOPRAZOLE SOD 40 MG DELAYED RELEASE TAB PO SCH (20:09)
[2017-01-12] VITALS (12 sets, daily range): BP systolic 128–148; BP diastolic 69–87; PULSE 74–98; RESP 18; TEMP 98.2–98.4; O2SAT 96–97
[2017-01-12] MEDS: CHLORHEXIDINE GLUCONATE 2 % 1 PACK (2 CLOTHS) TOP SCH (04:00)
[2017-01-12] MEDS: LORazepam 0.5 MG TAB PO PRN (04:03)
[2017-01-12] MEDS: SODIUM CHLOR 0.9% 1000 ML INJ 1,000 ML IV SCH (04:04)
[2017-01-12] MEDS: MULTIVITAMIN INJ 10 ML, FOLIC ACID INJ 1 MG in SODIUM CHLORID 0.9% 500 ML INJ 500 ML IV SCH (06:36)
[2017-01-12 07:18] LABS: AUTOMATED NEUTROPHIL # 3.5 TH/MM3 (1.8-7.7); BASOPHIL % 0.6 % (0.0-2.0); EOSINOPHIL # 0.1 TH/MM3 (0-0.4); EOSINOPHIL % 1.9 % (0.0-4.0); HEMATOCRIT 36.4 % (39.0-51.0); HEMO FLAGS DIFF FINAL; LYMPH % 26.8 % (9.0-44.0); LYMPHOCYTE # 1.7 TH/MM3 (1.0-4.8); MEAN CELL VOLUME 85.4 FL (80.0-100.0); MEAN CORPUSCULAR HEMOGLOBIN 27.7 PG (27.0-34.0); MEAN CORPUSCULAR HGB CONC 32.4 % (32.0-36.0); MONO % 14.6 % (0.0-8.0); NEUT % 56.1 % (16.0-70.0); PLATELET COUNT 123 TH/MM3 (150-450); RED BLOOD COUNT 4.26 MIL/MM3 (4.50-5.90); RED CELL DISTRIBUTION WIDTH 19.4 % (11.6-17.2); WHITE BLOOD COUNT 6.3 TH/MM3 (4.0-11.0)
[2017-01-12 07:40] LABS: ALKALINE PHOSPHATASE 51 U/L (45-117); ALT (GPT) 34 U/L (12-78); ANION GAP 8 MEQ/L (5-15); AST (GOT) 41 U/L (15-37); BICARBONATE 27.9 MEQ/L (21.0-32.0); BLOOD UREA NITROGEN 7 MG/DL (7-18); CHLORIDE 100 MEQ/L (98-107); GLOMERULAR FILTRATION RATE 102 ML/MIN (>89); POTASSIUM 3.7 MEQ/L (3.5-5.1); SODIUM (NA) 136 MEQ/L (136-145); TOTAL BILIRUBIN ADULT 0.4 MG/DL (0.2-1.0)
[2017-01-12] MEDS: ASPIRIN 81 MG CHEW TAB CHEW SCH (08:39)
[2017-01-12] MEDS: PANTOPRAZOLE SOD 40 MG DELAYED RELEASE TAB PO SCH (08:40)
[2017-01-12] MEDS: CARVEDILOL 6.25 MG TAB PO SCH (08:40)
[2017-01-12] MEDS: LORazepam 1 MG TAB PO PRN ×2 (08:40→10:23)
[2017-01-12] MEDS: LISINOPRIL 5 MG TAB PO SCH (08:40)
[2017-01-12] MEDS: DOCUSATE SODIUM 50 MG/SENNA 8.6 MG TAB PO SCH (08:40)
[2017-01-12] MEDS: SPIRONOLACTONE 25 MG TAB PO SCH (08:40)
[2017-01-12] MEDS: SODIUM CHLORIDE 0.9% FLUSH 10 ML FLUSH IV FLUSH SCH (08:41)
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
[2017-01-12] MEDS ORDERED: PANT40TA3 PO (10:12)
[2017-01-12] MEDS ORDERED: ASPI81CH25 CHEW (10:12)
[2017-01-12] MEDS ORDERED: LISI-519 PO (10:12)
[2017-01-12] MEDS ORDERED: CARV6.25 PO (10:12)
[2017-01-12] MEDS ORDERED: SPIR25 PO (10:12)
--- NOTE | 2017-01-12 10:19 | HHI.DS ---
Discharge Summary Admission Date Jan 08, 2017 at 00:52 Discharge Date: Jan 12, 2017 Admitting Diagnosis NSTEMI, Hypotension, Hyponatremia, Hypokalemia (1) Hyponatremia ICD Code: E87.1 - Hypo-osmolality and hyponatremia Diagnosis: Secondary Status: Chronic (2) Hypokalemia ICD Code: E87.6 - Hypokalemia Diagnosis: Secondary Status: Acute (3) Anxiety ICD Code: F41.9 - Anxiety disorder, unspecified Diagnosis: Secondary Status: Chronic (4) Elevated troponin level ICD Code: R74.8 - Abnormal levels of other serum enzymes Diagnosis: Secondary Status: Acute (5) Hematemesis ICD Code: K92.0 - Hematemesis Status: Acute (6) Lactic acid acidosis ICD Code: E87.2 - Acidosis Status: Acute (7) EtOH dependence ICD Code: F10.20 - Alcohol dependence, uncomplicated Diagnosis: Secondary Procedures S/P EGD (01/08/17) cardiac cath (01/11/17) report pending however per Cards PA neg. Brief History - From Admission 61-year-old with past medical history of alcohol abuse, esophagitis, "arthritis " who presented to [facility] with hematemesis. He states that he had been sober for 2 years and that he relapsed last week on , drinking 2 L of liquor over a 2 day period. He states he then tried to stop drinking " but couldn't". He says he was having hallucinations. On 01/03 t he had 2 episodes of vomiting a large amount of clots. He states the following day he "vomited all day" and that it looked dark "like engine oil". He states he was retching violently. He had multiple melena stools.. He has some epigastric pain, moderate severity "burning" that was worse with laying down. He states he has a prior history of upper GI bleed and had an endoscopy in 1994 in [facility] that demonstrated esophagitis, reportedly no varices.. He says he was on meloxicam for "several months" but discontinued it on his own 2 months ago. His initial hemoglobin is 14. Platelet count is normal. Coags are normal. His troponin is mildly elevated 0.23. EKG demonstrates sinus tachycardia at a rate of [address] elevation. He denies chest pain. He has a history of alcohol withdrawal seizures and DTs. He had CT pulmonary angiogram and CT abdomen and pelvis at outside hospital that demonstrated no evidence of Boerhaave's. Negative for pulmonary embolism. Diffuse fatty liver CBC/BMP: 01/12/17 0532 01/12/17 0532 Significant Findings Laboratory Tests Test 01/09/17 14:30 01/09/17 17:46 01/09/17 17:50 01/10/17 08:05 Hemoglobin 11.1 GM/DL (13.0-17.0) 11.1 GM/DL (13.0-17.0) 10.2 GM/DL (13.0-17.0) Hematocrit 34.8 % (39.0-51.0) 34.1 % (39.0-51.0) 31.1 % (39.0-51.0) Red Blood Count 3.69 MIL/MM3 (4.50-5.90) Red Cell Distribution Width 18.1 % (11.6-17.2) Platelet Count 96 TH/MM3 (150-450) Monocytes (%) (Auto) 9.9 % (0.0-8.0) Platelet Estimate LOW (NORMAL) Blood Urea Nitrogen 3 MG/DL (7-18) Random Glucose 124 MG/DL (74-106) Calcium Level 7.7 MG/DL (8.5-10.1) Sodium Level 130 MEQ/L (136-145) Potassium Level 3.2 MEQ/L (3.5-5.1) Chloride Level 96 MEQ/L (98-107) HDL Cholesterol 65.4 MG/DL (40.0-60.0) Test 01/10/17 18:15 01/12/17 05:32 Red Blood Count 3.82 MIL/MM3 (4.50-5.90) 4.26 MIL/MM3 (4.50-5.90) Hemoglobin 10.5 GM/DL (13.0-17.0) 11.8 GM/DL (13.0-17.0) Hematocrit 32.5 % (39.0-51.0) 36.4 % (39.0-51.0) Red Cell Distribution Width 18.4 % (11.6-17.2) 19.4 % (11.6-17.2) Platelet Count 101 TH/MM3 (150-450) 123 TH/MM3 (150-450) Monocytes (%) (Auto) 8.8 % (0.0-8.0) 14.6 % (0.0-8.0) Activated Partial Thromboplast Time 24.0 SEC (24.3-30.1) Blood Urea Nitrogen 6 MG/DL (7-18) Random Glucose 120 MG/DL (74-106) Calcium Level 8.0 MG/DL (8.5-10.1) 7.9 MG/DL (8.5-10.1) Sodium Level 135 MEQ/L (136-145) Estimat Glomerular Filtration Rate 75 ML/MIN (>89) Total Protein 6.0 GM/DL (6.4-8.2) Albumin 2.6 GM/DL (3.4-5.0) Aspartate Amino Transf (AST/SGOT) 41 U/L (15-37) Imaging Last Impressions Myocardial Perfusion Scan Nuc Med 01/09/17 0000 Signed Impressions: Service Date/Time: Monday, January 09, 2017 09:49 - CONCLUSION: Minimal redistribution anteroseptal region. RISK CATEGORY: High (>3%% Annual Mortality Rate) Ronnell Quiles MD FACR CT Angiography 01/07/172252 Signed Impressions: Service Date/Time: Saturday, January 07, 2017 23:00 - CONCLUSION: Negative for pulmonary embolus. Moderate to severe coronary calcifications. Minimal dependent atelectasis in the lungs. Les Buckley MD Chest X-Ray 01/07/172200 Signed Impressions: Service Date/Time: Saturday, January 07, 2017 22:20 - CONCLUSION: No evidence of acute cardiopulmonary disease. Rajeev Loera MD Abdomen/Pelvis CT 01/07/172200 Signed Impressions: Service Date/Time: Saturday, January 07, 2017 23:00 - CONCLUSION: 1. No acute findings within the abdomen. Diffuse fatty liver. Moderate degenerative change of the spine. Previous right hip replacement. Les Buckley MD Head CT 01/07/17 0000 Signed Impressions: Service Date/Time: Saturday, January 07, 2017 23:54 - CONCLUSION: Normal examination for a patient of this age. Les Buckley MD PE at Discharge GENERAL: laying in bed, anxious. EYES: EOMI ENT: trachea midline CARDIOVASCULAR:RRR w no murmurs RESPIRATORY: No accessory muscle use. Clear to auscultation. GASTROINTESTINAL: Abdomen soft, Non tender at this time. MUSCULOSKELETAL: Extremities edema. No obvious deformities. right groin dressing d/c/i NEUROLOGICAL: Awake and alert. Motor grossly within normal limits. no reported hallucinations. Pt update on day of discharge Pt states he feels anxious. Not sure where to go from here. no CP/SOB/N/V/ abdominal pain. Hospital Course Alcohol dependence History of alcohol withdrawal seizures [facility] protocol Multivitamin/folate acid/thiamine Sinus tachycardia Elevated troponin Sinus tachycardia Secondary to volume depletion and DTs. Troponin elevation . He received aspirin in the ED. anticoagulation on hold due to concern for presentation with GI bleeding, however I discussed w Dr. Monsivais and from her stand point pt can be on dual platelet therapy if needed. Discussed w cards, plan is for pt to go to cath tomorrow. 2-D Echo shows an EF 20-25% w diffuse global hypokinesis. Cardiology, Dr. Delong following, s/p cardiac cath 01/11/17. per cadiology pt can be discharged from their standpoint as cath was neg. continue ASA, Maximo-i, coreg, and aldactone. Pt will need a statin however w the elevated LFTs recommend starting once back to normal. Official cardiac cath report not yet available ok to resume ASA 81mg per GI. Hematemesis Melena Fatty infiltration of the liver History of esophagitis/gastritis Diarrhea CT chest/abdomen/pelvis - No evidence of Boerhaave's. Reportedly had EGD in 1994 with no evidence of varices. He had esophagitis. He has had chronic NSAID exposure though none in the last couple of months. on Protonix 40 mg po every 12 hours. s/p IV Octreotide. He has been cleared by GI for discharge. EGD showed gastritis/esophagitis/duodenitis Pt Condition on Discharge: Stable Discharge Disposition: Discharge Home Discharge Time: > 30 minutes Discharge Instructions DIET: Follow Instructions for: Heart Healthy Diet Activities you can perform: Regular-No Restrictions Follow up Referrals: Cardiology - 2 Weeks Gastroenterology - 2 Weeks @ [facility] PCP Follow-up - 1 Week New Medications: Aspirin (Aspirin Low Strength) 81 Mg Chew 81 MG CHEW DAILY for 30 Days, EA Carvedilol (Coreg) 6.25 Mg Tab 6.25 MG PO Q12HR for 30 Days, TAB Lisinopril (Lisinopril) 5 Mg Tab 5 MG PO DAILY for 30 Days, #30 TAB Pantoprazole (Pantoprazole) 40 Mg Tab 40 MG PO Q12HR for 30 Days, TAB Spironolactone (Aldactone) 25 Mg Tab 25 MG PO BID@09,18 for 30 Days, TAB Diamond Amaro MD Jan 12, 2017 10:19
--- NOTE | 2017-01-13 20:20 | MA ---
cc: ARNOLD DELONG M.D., ROSANNE R. MD DATE 01/11/2017 INDICATION FOR CATHETERIZATION Abnormal nuclear stress test, low ejection fraction. CONSENT Full informed consent was obtained prior to the procedure. The risks of , bleeding, myocardial infarction, perforation, aspiration, foreseen and unforeseen complications were reviewed. The patient fully appeared to understand the risks. PROCEDURAL STATEMENTS The patient was draped and prepped in the usual manner. The right femoral artery was entered using a micropuncture technique. Via the 4 [place] sheath, left and right coronary catheters were used to intubate the left and right coronaries. Pigtail catheter was used to intubate the left ventricle. Multiple angiographic views were carried out. At the end of the catheterization procedure, all catheters and sheaths were removed. The patient was returned to the doc unit for holding. FINDINGS I. HEMODYNAMICS: There was no evidence of significant gradient on pullback across the LV outflow tract and aortic valve. II. LEFT VENTRICULOGRAM: The overall left ventricular ejection fraction was reduced, estimated at about 36-40%. There was no significant mitral regurgitation or mural thrombus. III. RIGHT AND LEFT CORONARIES: The left main was short and free of significant disease. The left anterior descending artery was a large vessel. There is evidence of significant calcification of the LAD. There is evidence of diffuse 25-30% disease. The circumflex artery was a large artery. There is a large first obtuse marginal branch. There was a small second obtuse marginal branch. There was a large third obtuse marginal branch/posterior descending artery. This was a less dominant system. The right coronary artery was small and non dominant and free of significant disease. CONCLUSION 1. 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 2. Heavy calcification of the left anterior descending artery and some calcification of the circumflex which explains the abnormal CT angio. 3. 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 The patient has been counseled to stop drinking. Hopefully with this his ejection fraction will improve. Arnold Delong MD, FRCP,[facility]/KK /8:04 AM /7:55 PM KALEIDA HEALTHEle
== END 2017-01-12 11:26 | disposition home or self-care (01) | DRG 378 ==
LOC: PHED 20:15 → PHEDA 01-08 00:52 → N03A 01-08 03:44 → N04B 01-08 17:48 → HCIS 01-11 07:54 → HCIN 01-11 16:30
PROVIDERS: ADMIT Hospitalist; ATTEND Hospitalist
PROC: 0DB98ZX Excision of Duodenum, Via Natural or Artificial Opening Endoscopic, Diagnostic (ICD-10-PCS; 2017-01-08)
PROC: 0DB68ZX Excision of Stomach, Via Natural or Artificial Opening Endoscopic, Diagnostic (ICD-10-PCS; 2017-01-08)
PROC: 0DB58ZX Excision of Esophagus, Via Natural or Artificial Opening Endoscopic, Diagnostic (ICD-10-PCS; 2017-01-08)
PROC: B215YZZ Fluoroscopy of Left Heart using Other Contrast (ICD-10-PCS; 2017-01-11)
PROC: B211YZZ Fluoroscopy of Multiple Coronary Arteries using Other Contrast (ICD-10-PCS; 2017-01-11)
PROC: 4A023N7 Measurement of Cardiac Sampling and Pressure, Left Heart, Percutaneous Approach (ICD-10-PCS; principal; 2017-01-11 07:15)
DX: K92.0 Hematemesis (principal); E87.1 Hypo-osmolality and hyponatremia; F10.231 Alcohol dependence with withdrawal delirium; E87.2 Acidosis; I95.9 Hypotension, unspecified; I42.6 Alcoholic cardiomyopathy; E86.0 Dehydration; K92.1 Melena; K76.0 Fatty (change of) liver, not elsewhere classified; E83.42 Hypomagnesemia; R74.8 Abnormal levels of other serum enzymes; R07.89 Other chest pain; E87.6 Hypokalemia; E83.39 Other disorders of phosphorus metabolism; R73.9 Hyperglycemia, unspecified; I25.10 Atherosclerotic heart disease of native coronary artery without angina pectoris; I25.84 Coronary atherosclerosis due to calcified coronary lesion; K29.50 Unspecified chronic gastritis without bleeding; K20.9 Esophagitis, unspecified; K29.80 Duodenitis without bleeding; R19.7 Diarrhea, unspecified; K44.9 Diaphragmatic hernia without obstruction or gangrene; Y90.0 Blood alcohol level of less than 20 mg/100 ml; Z82.49 Family history of ischemic heart disease and other diseases of the circulatory system; Z96.641 Presence of right artificial hip joint
CPT/HCPCS: 70450; 71010; 71275; 74177; 78452; 80048; 80053; 80061; 80307; 81001; 82140; 82550; 82552; 83605; 83690; 83735; 84100; 84132; 84443; 84484; 85014; 85018; 85025; 85610; 85730; 86850; 86900; 86901; 87493; 87506; 87641; 88305; 88312; 93005; 93017; 93306; 93458; 96361; 96374; 96375; A9502; C1769; C1893; C9113; J1644; J2250; J2270; J2354; J2405; J2785; J3010; J3480; J7030; J7040; J7050; Q9967